=== PATIENT | male | born 1930 | race Caucasian/White ===

== ENCOUNTER → 2016-08-14 | Outpatient (CLI) | payer OTHER ==
[~2016-08-14] MED LIST: CMD25 PO; DXY100 PO; FELO10TA2 PO; FINA5TAB PO; LVNIS80 SQ; NIFE1TAB13 PO; NITR1CAP32 PO; NMN10 PO; PRS5 PO; TERA1CAP63 PO; TERA5CAP PO; ZCR80 PO
[2016-08-14 17:32] LABS: URINE APPEARANCE TURBID (CLEAR); URINE BILIRUBIN NEG (NEG); URINE COLOR DK YELLOW; URINE EPITHELIAL CELL AUTO 0-5 /lpf (0-5); URINE NITRITE POS (NEG); URINE SPECIFIC GRAVITY 1.018 (1.000-1.030); UROBILINOGEN NEG (NEG); ZZUR CULT IF INDIC CLEAN CATCH YES
[2016-08-14 17:47] LABS: MANUAL MICROSCOPIC REQUIRED? NO; REVIEW REQ? YES
== END | disposition home or self-care (01) ==
LOC: C.LABPVFM 07:36
PROVIDERS: ATTEND Nurse Practitioner
DX: N39.0 Urinary tract infection, site not specified (principal)

== ENCOUNTER → 2016-09-04 | Outpatient (CLI) | payer OTHER ==
[2016-09-04 17:36] LABS: URINE APPEARANCE CLOUDY (CLEAR); URINE BILIRUBIN NEG (NEG); URINE COLOR YELLOW; URINE NITRITE NEG (NEG); URINE PH 5.5 (4.5-7.5); URINE SPECIFIC GRAVITY 1.019 (1.000-1.030); UROBILINOGEN NEG (NEG); ZZUR CULT IF INDIC CLEAN CATCH YES
[2016-09-04 17:42] LABS: MANUAL MICROSCOPIC REQUIRED? NO; REVIEW REQ? YES
== END | disposition home or self-care (01) ==
LOC: C.LABPVFM 11:48
PROVIDERS: ATTEND Nurse Practitioner
DX: R31.29 Other microscopic hematuria (principal)

== ENCOUNTER → 2016-11-25 | Outpatient (CLI) | payer OTHER ==
[2016-11-25 18:14] LABS: BLOOD UREA NITROGEN 20 mg/dl (7-18); BUN/CREATININE RATIO 18.4 (10-20); CALCIUM 9.6 mg/dl (8.5-10.1); CARBON DIOXIDE 26 mmol/L (21-32); CHLORIDE 107 mmol/L (98-107); GLUCOSE 110 mg/dl (70-99); SODIUM 141 mmol/L (136-145)
== END | disposition home or self-care (01) ==
LOC: C.LABPVFM 16:12
PROVIDERS: ATTEND Family Medicine
DX: I10 Essential (primary) hypertension (principal)

== ENCOUNTER 2017-04-02 12:51 | Inpatient (IN) | payer OTHER ==
[~2017-04-02] VITALS: Ht 170.2 cm; Wt 85.5 kg
[~2017-04-02 12:51] MED LIST changes: -CMD25 PO; -FINA5TAB PO; -LVNIS80 SQ; -NIFE1TAB13 PO; -NITR1CAP32 PO; -TERA1CAP63 PO
[2017-04-02] MEDS ORDERED: SODIUM CHLORIDE 0.9% 1000ML 1,000 ML IV SCH (13:10)
[2017-04-02] MEDS ORDERED: NMN10 PO (13:16)
[2017-04-02] MEDS ORDERED: TERA1CAP63 PO (13:16)
[2017-04-02] MEDS ORDERED: NITR1CAP32 PO (13:16)
[2017-04-02] MEDS ORDERED: FINA5TAB PO (13:16)
--- NOTE | 2017-04-02 13:24 | DIAGNOSTIC IMAGING REPORT ---
HEAD WITHOUT CONTRAST (CT) CLINICAL HISTORY: 86 years-old Male presenting with Stroke. TECHNIQUE: Multidetector CT imaging of the head was performed without the use of intravenous contrast. IV contrast: None. A dose lowering technique was used consistent with the principles of ALARA (as low as reasonably achievable). COMPARISON: 06/20/2016. CT DOSE (mGy.cm): The estimated cumulative dose is 614.27 mGy.cm. FINDINGS: Grocery Clerk Marking topogram: Unremarkable. Proportional ventricular and sulcal prominence, likely age-related parenchymal volume loss. Periventricular and subcortical white matter hypoattenuation, nonspecific but likely indicative of chronic small vessel ischemic change. No mass effect or midline shift. No hemorrhage or acute territorial infarct. No extra-axial fluid collection. Paranasal sinuses and mastoid air cells clear. Calvarium intact. IMPRESSION: 1. No acute intracranial pathology. Electronically signed by: Donte Mendez M.D. 04/02/2017 1:22 PM Dictated Date/Time: 04/02/2017 1:19 PM
[2017-04-02 13:50] LABS: INR 1.2 (0.9-1.1); PROTHROMBIN TIME (PATIENT) 12.6 SECONDS (9.0-12.0)
[2017-04-02 13:56] LABS: BUN/CREATININE RATIO 19.4 (10-20); CALCIUM 10.1 mg/dl (8.5-10.1); CREATININE 1.7 mg/dl (0.60-1.40); POTASSIUM 4.4 mmol/L (3.5-5.1)
--- NOTE | 2017-04-02 13:58 | DIAGNOSTIC IMAGING REPORT ---
CHEST ONE VIEW PORTABLE CLINICAL HISTORY: Stroke alert. COMPARISON STUDY: Chest radiograph July 25, 2016. FINDINGS: This study is mildly compromised by motion artifact. There is mild left lower lung opacity. Cardiomegaly is noted without evidence of pulmonary edema. No pneumothorax or pleural effusion is noted. There is mild elevation of the right hemidiaphragm. IMPRESSION: 1. Mild left lower lung opacity. This could reflect atelectasis or epicardial fat pad. However, pneumonia could appear similar. Radiographic follow up to ensure resolution is recommended. 2. Stable cardiomegaly without evidence of pulmonary edema. 3. Study mildly compromised by motion artifact. Electronically signed by: Brian Castañeda M.D. 04/02/2017 1:56 PM Dictated Date/Time: 04/02/2017 1:55 PM
[2017-04-02 14:10] LABS: HEMATOCRIT 48.8 % (42-52); MEAN CELL VOLUME 90.7 fL (80-100); MEAN CORPUSCULAR HEMOGLOBIN 29.6 pg (25-34); MEAN CORPUSCULAR HGB CONC 32.6 g/dl (32-36); MEAN PLATELET VOLUME 11.9 fL (7.4-10.4); PLATELET COUNT 70 K/uL (130-400); RED BLOOD COUNT 5.38 M/uL (4.7-6.1); WHITE BLOOD COUNT 10.95 K/uL (4.8-10.8)
[2017-04-02 14:13] LABS: BASO % 0.1 %; BASO ABS # 0.01 K/uL (0-0.2); COMPLETE YES; EOS % 0.5 %; IG% 0.9 %; LYMPH % 9.6 %; LYMPH ABS # 1.05 K/uL (1.2-3.4); MONO % 6.4 %; NEUT % 82.5 %; PLT ESTIMATE DECREASED
--- NOTE | 2017-04-02 14:21 | DIAGNOSTIC IMAGING REPORT ---
RIGHT LOWER EXTREMITY VENOUS DOPPLER HISTORY: Right leg swelling. right leg eval for dvt Right COMPARISON STUDY: None. FINDINGS: There is occlusive thrombus within the right superficial femoral vein, popliteal vein, posterior tibial veins, and peroneal veins. The common femoral vein and anterior tibial veins appear patent. IMPRESSION: Extensive occlusive DVT within the right lower extremity as described above. Electronically signed by: Luis Heck M.D. 04/02/2017 2:19 PM Dictated Date/Time: 04/02/2017 2:18 PM
[2017-04-02] MEDS ORDERED: HEPARIN SOD (PORCINE) 1000 UNIT/ML 10 ML VIAL IV ONE (14:35)
[2017-04-02] MEDS: HEPARIN 25,000 UNIT/500ML D5W 500 ML IV PRN ×2 (14:51→21:06)
[2017-04-02] MEDS ORDERED: ACETAMINOPHEN IV 100 ML IV PRN (15:00)
[2017-04-02] MEDS ORDERED: LEVALBUTEROL/IPRATROPIUM NEB INH SCH (15:00)
[2017-04-02] MEDS ORDERED: ONDANSETRON INJ 2 MG/ML 2 ML VIAL IV PRN (15:00)
[2017-04-02] MEDS ORDERED: HEPARIN 25,000 UNIT/500ML D5W 500 ML IV PRN (15:30)
--- NOTE | 2017-04-02 16:36 | Cardiology Consultation ---
Cardiology Consultation Date of Consultation: Apr 02, 2017. Requesting Physician: Mary Carmen Reason for Consultation: Syncope Pt evaluation today including: conversation w/ patient, conversation w/ family , physical exam, chart review, lab review, review of studies, conversation w/ political consultant, conversation w/ attending History of Present Illness Patient is an 86-year-old gentleman with a history of severe and progressive dementia who was noticed by his caregiver early in the day to have suffered a syncopal episode. The caregiver was not available for an interview today but this information was relayed by family members and the medical staff. It seems he was in his usual state of health when he looks forward and passed out. He quickly regained consciousness was brought to the emergency room. There is some concern regarding an element of expressive aphasia, but discussion with the family reveals this to be his baseline state. Patient self cannot communicate well but will answer some questions. He denies any pain currently. Denies any significant breathing trouble. His family has noticed some increased swelling in his right lower leg over the past several days. 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 He spends most of his day in bed or a chair. He he generally does not ambulate on his own. According to his family members he has been less and less communicative recently. He does have an element of anorexia as well. Past Medical/Surgical History Dementia Benign prostatic hypertrophy Hypertension Diverticulosis Renal carcinoma Pneumonia Past surgical history Kidney surgery Family History Patient reports no known family medical history. Noncontributory given his advanced age Social History Smoking Status: Unknown if Ever Smoked History of Alcohol Use: No Currently lives with family. Review of Systems Resistance could not be obtained due to the patient's dementia Allergies Coded Allergies: No Known Allergies (Verified , 04/02/17) Medications Current Inpatient Medications Medications (Trade) Dose Ordered Sig/[place] Route Start Time Stop Time Status Last Admin Dose Admin Sodium Chloride 1,000 ml @ 50 mls/hr Q20H IV 04/02/17 13:10 05/02/17 13:09 Heparin Sodium/ Dextrose 500 ml @ 26 mls/hr [id number] PRN IV 04/02/17 14:45 05/02/17 14:44 04/02/17 14:51 26 MLS/HR Sodium Chloride 1,000 ml @ 125 mls/hr Q8H IV 04/02/17 14:56 05/02/17 14:55 Ondansetron HCl (Zofran Inj) 4 mg Q6H PRN IV 04/02/17 15:00 05/02/17 14:59 Famotidine 20 mg/ Dextrose 102 ml @ 200 mls/hr Q12H IV 04/02/17 15:00 05/02/17 14:59 UNV Acetaminophen 100 ml @ 400 mls/hr Q8H PRN IV 04/02/17 15:00 05/02/17 14:59 UNV Methylprednisolone Sodium Succinate 20 mg/Syringe 0.32 ml @ 1.5 mls/min Q8H IV 04/02/17 15:00 05/02/17 14:59 UNV Ceftriaxone Sodium 1 gm/ Dextrose 50 ml @ 100 mls/hr Q24H IV 04/02/17 15:00 04/09/17 14:59 UNV Levofloxacin 500 mg/Prmx 100 ml @ 100 mls/hr Q24H IV 04/02/17 15:00 04/09/17 14:59 UNV Heparin Sodium/ Dextrose 500 ml @ 26 mls/hr [id number] PRN IV 04/02/17 15:30 05/02/17 15:29 UNV Ipratropium Gilbert (Atrovent 0.02% 0.5MG/2.5ML Neb) 0.5 mg Q6R INH 04/02/17 21:00 05/02/17 20:59 Levalbuterol (Xopenex 1.25MG/ 0.5ML Neb) 1.25 mg Q6R INH 04/02/17 21:00 05/02/17 20:59 Physical Exam Vital Signs Past 12 Hours Date Time Temp Pulse Resp B/P (MAP) Pulse Ox O2 Delivery O2 Flow Rate FiO2 04/02/17 16:17 96 18 131/91 95 04/02/17 15:36 98 18 130/86 96 Room Air 04/02/17 14:11 104 94 04/02/17 14:10 154/73 04/02/17 13:41 105 92 04/02/17 13:36 95 Room Air 04/02/17 13:36 106 95 04/02/17 13:32 128/87 04/02/17 13:22 104/66 04/02/17 13:06 107 30 93 04/02/17 13:02 36.8 106 25 99/65 95 Room Air 04/02/17 13:02 99/65 04/02/17 13:00 106 04/02/17 12:55 36.8 107 18 99/65 95 Room Air 04/02/17 12:53 98/59 The patient is alert and will answer some questions. Unable to determine if he is oriented to person place or situation. HEENT: Pupils are equal and reactive to light and accommodation. Extraocular movements are intact. The sclerae are anicteric. Neuro: He could not cooperate with the exam Neck: Patient's neck is supple. He has palpable carotid pulses bilaterally without bruits on auscultation. There is no evidence of jugular venous distention. The thyroid is not enlarged. Lungs: Clear to auscultation bilaterally. He has good air movement without use of accessory muscles. No rales wheezes or rhonchi. Cardiac: Heart demonstrates a regular rate and rhythm. Normal S1 and S2. Systolic ejection murmur. Pulses: The patient has palpable radial pulses bilaterally that are equal in intensity Extremities: There was no evidence of hypoperfusion. There is no cyanosis or clubbing. The right leg is swollen relative to the left. Skin: I did not appreciate any rashes on examination today. Data Laboratory Results: Last 24 Hours Test 04/02/17 13:25 White Blood Count 10.95 K/uL Red Blood Count 5.38 M/uL Hemoglobin 15.9 g/dL Hematocrit 48.8 % Mean Corpuscular Volume 90.7 fL Mean Corpuscular Hemoglobin 29.6 pg Mean Corpuscular Hemoglobin Concent 32.6 g/dl Platelet Count 70 K/uL Mean Platelet Volume 11.9 fL Neutrophils (%) (Auto) 82.5 % Lymphocytes (%) (Auto) 9.6 % Monocytes (%) (Auto) 6.4 % Eosinophils (%) (Auto) 0.5 % Basophils (%) (Auto) 0.1 % Neutrophils # (Auto) 9.03 K/uL Lymphocytes # (Auto) 1.05 K/uL Monocytes # (Auto) 0.70 K/uL Eosinophils # (Auto) 0.06 K/uL Basophils # (Auto) 0.01 K/uL RDW Standard Deviation 44.6 fL RDW Coefficient of Variation 13.6 % Immature Granulocyte % (Auto) 0.9 % Immature Granulocyte # (Auto) 0.10 K/uL Platelet Estimate DECREASED Prothrombin Time 12.6 SECONDS Prothromb Time International Ratio 1.2 Activated Partial Thromboplast Time 25.2 SECONDS Partial Thromboplastin Ratio 1.0 Sodium Level 143 mmol/L Potassium Level 4.4 mmol/L Chloride Level 109 mmol/L Carbon Dioxide Level 26 mmol/L Anion Gap 8.0 mmol/L Blood Urea Nitrogen 33 mg/dl Creatinine 1.70 mg/dl Est Creatinine Clear Calc Drug Dose 33.1 ml/min Estimated GFR () 41.7 Estimated GFR (Non- 36.0 BUN/Creatinine Ratio 19.4 Bedside Glucose 160 mg/dl Random Glucose 192 mg/dl Calcium Level 10.1 mg/dl Troponin I 0.071 ng/ml Imaging: Lower extremity Doppler revealed thrombus in the right leg. Chest x- ray demonstrates an opacity in the left lower lung lobe. Noncontrast CT of the head did not demonstrate any acute intracranial abnormality or bleeding. EKG: Sinus tachycardia Echocardiogram demonstrated preserved LV systolic function with what appears to be normal RV function. There is extensive thrombus in the right atrium measuring 3 centimeters in its greatest dimension. There does appear to be an element of aortic stenosis which is not severe. Assessment & Plan 1. Interatrial thrombus: Patient is extensive right leg DVT and evidence of thrombus in the right atrium. Very likely he has also suffered a pulmonary embolus based on his chest x-ray result. He has been appropriately anticoagulated. We debated whether more aggressive intervention is required given the known thrombus in the right atrium. However, it seems the only viable option would be surgical removal of such a large clot. Given his other comorbidities, the risk would be prohibitive. I did discuss this option with the patient's family who were in agreement that we will not pursue surgery. I also discussed his case with the interventional radiology department at [facility] and it was agreed that unless the patient has severe hemodynamic compromise heroic measures such as catheter based thrombectomy would not be pursued. At This point initiation on anticoagulation will be the therapy and we will monitor his hemodynamics and oxygenation. 2. Elevated cardiac troponin: This is likely related to right heart strain. Patient is anticoagulated. I would not pursue any additional evaluation for ischemic heart disease at this point. 3. Valvular heart disease: The 2 dimensional echocardiogram images suggested element of aortic stenosis which is not severe.
--- NOTE | 2017-04-02 17:16 | ECHOCARDIOGRAM REPORT ---
*NOTICE TO RECEIVING CONSTITUTION PARTY AGENCY This information is strictly Confidential and protected under [place] law. [place] law prohibits you from making any further disclosure of this information unless further disclosure is expressly permitted by the written consent of the person to whom it pertains or is authorized by law. A general authorization for the release of medical or other information is not sufficient for this purpose. Hospital accepts no responsibility if the information is made available to any other person, INCLUDING THE PATIENT. Interpretation Summary * Name: GLADYS DEL ROSARIO Study Date: 04/02/2017 03:23 PM * Patient Location: C.ED HR: 111 * : 1930 (M/d/yyyy) Gender: Male Height: 67 in * Age: 86 yrs Ethnicity: CA Weight: 187 lb * Ordering Physician: Randy Garcia * Referring Physician: UNKNOWN * Performed By: Isatu Zhao RCS * * Reason For Study: Cerebral Ischemia/ embolus, DVT Eval for Rt Strain * BSA: 2.0 m2 * -- Conclusions -- * There is borderline concentric left ventricular hypertrophy. * Left ventricular systolic function is normal. * The right ventricle is mildly dilated. * There is extensive thrombus noted within the right atrium. This measures approximately 2 by 3 centimeters in dimension * Injection of contrast documented no interatrial shunt. * Mild valvular aortic stenosis. Procedure Details * A saline contrast injection was performed to assess for cardiac shunting. * The injection was performed through an intravenous line in the left arm. * The attending nurse who injected the saline contrast was FRANKY, RN. * A total of 9 cc of agitated saline was given. Left Ventricle * The left ventricle is grossly normal size. * There is borderline concentric left ventricular hypertrophy. * Ejection Fraction = 60-65%. * Left ventricular systolic function is normal. * The left ventricular wall motion is normal at rest. Right Ventricle * The right ventricle is mildly dilated. * The right ventricular systolic function is normal. Atria * Borderline left atrial enlargement. * Right atrial size is normal. * There is extensive thrombus noted within the right atrium. This measures approximately 2 by 3 centimeters in dimension * Injection of contrast documented no interatrial shunt. Mitral Valve * The mitral valve is grossly normal. * Significant mitral regurgitation is absent. Tricuspid Valve * The tricuspid valve anatomy is normal. * Significant tricuspid regurgitation is absent. Aortic Valve * The aortic valve is trileaflet. * Mild valvular aortic stenosis. * There is no significant aortic regurgitation. Great Vessels * The aortic root is normal size. Pericardium/Pleural * There is no pericardial effusion. Great Vessels * Normal inferior vena cava diameter and respiratory variation suggests normal central venous pressure. MMode 2D Measurements and Calculations RVDd 4.3 cm IVSd 1.1 cm LVIDd 3.7 cm LVIDs 1.8 cm LVPWd 1.2 cm IVS/LVPW 0.94 FS 51.5 % EDV(Teich) 57.2 ml ESV(Teich) 9.5 ml EF(Teich) 83.4 % EDV(cubed) 49.6 ml ESV(cubed) 5.7 ml EF(cubed) 88.6 % LV mass(C)d 138.8 grams LV mass(C)dI 70.6 grams/m\S\2 SV(Teich) 47.7 ml SI(Teich) 24.3 ml/m\S\2 SV(cubed) 43.9 ml SI(cubed) 22.4 ml/m\S\2 Ao root diam 3.8 cm Ao root area 11.1 cm\S\2 LVOT diam 2.2 cm LVOT area 3.9 cm\S\2 LVAd ap4 23.6 cm\S\2 LVLd ap4 8.4 cm EDV(MOD-sp4) 54.4 ml EDV(sp4-el) 56.0 ml LVAs ap4 12.3 cm\S\2 LVLs ap4 6.4 cm ESV(MOD-sp4) 20.6 ml ESV(sp4-el) 20.3 ml EF(MOD-sp4) 62.2 % EF(sp4-el) 63.7 % LVAd ap2 19.5 cm\S\2 LVLd ap2 7.4 cm EDV(MOD-sp2) 43.4 ml EDV(sp2-el) 43.2 ml LVAs ap2 11.2 cm\S\2 LVLs ap2 6.4 cm ESV(MOD-sp2) 19.4 ml ESV(sp2-el) 16.8 ml EF(MOD-sp2) 55.2 % EF(sp2-el) 61.1 % LVLd %diff -13.24 % EDV(MOD-bp) 51.7 ml LVLs %diff -0.24 % ESV(MOD-bp) 19.5 ml EF(MOD-bp) 62.2 % SV(MOD-sp4) 33.9 ml SI(MOD-sp4) 17.2 ml/m\S\2 SV(MOD-sp2) 24.0 ml SI(MOD-sp2) 12.2 ml/m\S\2 SV(MOD-bp) 32.1 ml SI(MOD-bp) 16.3 ml/m\S\2 SV(sp4-el) 35.7 ml SI(sp4-el) 18.2 ml/m\S\2 SV(sp2-el) 26.4 ml SI(sp2-el) 13.4 ml/m\S\2 Doppler Measurements and Calculations Ao V2 max 188.3 cm/sec Ao max PG 14.2 mmHg Ao max PG (full) 11.5 mmHg Ao V2 mean 150.4 cm/sec Ao mean PG 9.8 mmHg Ao mean PG (full) 8.4 mmHg Ao V2 VTI 32.4 cm GAUDENCIO(I,A) 1.6 cm\S\2 GAUDENCIO(I,D) 1.6 cm\S\2 GAUDENCIO(V,A) 1.7 cm\S\2 GAUDENCIO(V,D) 1.7 cm\S\2 LV V1 max PG 2.7 mmHg LV V1 mean PG 1.3 mmHg LV V1 max 82.7 cm/sec LV V1 mean 51.1 cm/sec LV V1 VTI 13.1 cm SV(Ao) 358.5 ml SI(Ao) 182.4 ml/m\S\2 SV(LVOT) 51.6 ml SI(LVOT) 26.3 ml/m\S\2
[2017-04-02] MEDS: SODIUM CHLORIDE 0.9% 1000ML 1,000 ML IV SCH ×2 (17:48→22:48)
[2017-04-02] MEDS: METHYLPREDNISOLONE IV 20 MG in SYRINGE 0 ML IV SCH (17:48)
[2017-04-02] MEDS: LEVOFLOXACIN / D5W 500 MG in PREMIXED IN D5W 100 ML IV SCH (17:49)
[2017-04-02] MEDS: CEFTRIAXONE SOD INJ 1 GM in DEXTROSE 5% ADD-VANTAGE 50ML 50 ML IV SCH (17:49)
[2017-04-02] MEDS: FAMOTIDINE IV INJ 20 MG in DEXTROSE 5% 100ML 100 ML IV SCH (17:49)
--- NOTE | 2017-04-02 18:45 | History and Physical ---
History & Physical Date & Time of Service: Apr 02, 2017 at 18:23 Chief Complaint: Acute Dvt Of Rt Lower Extremity, Lt Lower Lobe Pne Primary Care Physician: Donte Willard M.D. History of Present Illness Source: patient, family, hospital records The patient is an 86-year-old male with known progressive severe dementia who his caregiver reports had a syncopal episode earlier in the day prior to arrival. His family had noted some increased swelling in the right leg over the past several days, but he had not reported any leg pain or difficulty with breathing or chest pain. Past Medical/Surgical History Medical Problems: (1) Acute prostatitis Status: Resolved (2) Altered mental status Status: Resolved (3) Bilateral pneumonia Status: Resolved (4) BPH (benign prostatic hyperplasia) Status: Chronic (5) Dementia Status: Chronic (6) Fever Status: Resolved (7) HTN (hypertension) Status: Chronic (8) Hypercholesterolemia Status: Chronic Family History Patient reports no known family medical history. Social History Smoking Status: Unknown if Ever Smoked Smokeless Tobacco Use: No Alcohol Use: none Drug Use: none Marital Status: Housing status: lives with family Occupational Status: retired Immunizations History of Influenza Vaccine: N/A History of Tetanus Vaccine?: No History of Pneumococcal: No History of Hepatitis B Vaccine: No Multi-Drug Resistant Organisms History of MDRO: No Allergies Coded Allergies: No Known Allergies (Verified , 04/02/17) Home Medications Scheduled Finasteride (Proscar), 1 TAB PO DAILY Memantine (Namenda), 10 MG PO QAM Memantine (Namenda), 10 MG PO BID Nitrofurantoin Macrocrystals (Macrodantin), 1 CAP PO BID Terazosin Hcl (Hytrin), 1 CAP PO HS Review of Systems The patient himself was not able to contribute significantly to his review of systems or history of present illness. His family who is in attendance, who are very attentive, reports that he was in his usual state of health, with the above-noted change in his right leg size, prior to the syncopal episode this morning Physical Exam Vital Signs Date Time Temp Pulse Resp B/P (MAP) Pulse Ox O2 Delivery O2 Flow Rate FiO2 04/02/17 16:17 96 18 131/91 95 04/02/17 15:36 98 18 130/86 96 Room Air 04/02/17 14:11 104 94 04/02/17 14:10 154/73 04/02/17 13:41 105 92 04/02/17 13:36 95 Room Air 04/02/17 13:36 106 95 04/02/17 13:32 128/87 04/02/17 13:22 104/66 04/02/17 13:06 107 30 93 04/02/17 13:02 36.8 106 25 99/65 95 Room Air 04/02/17 13:02 99/65 04/02/17 13:00 106 04/02/17 12:55 36.8 107 18 99/65 95 Room Air 04/02/17 12:53 98/59 The patient is lethargic, normocephalic and atraumatic, lying in bed and in no acute distress. HEENT--PERRL, EOMI, mucous membranes and oropharynx dry. Neck--supple, no JVD or bruits, thyroid normal, trachea midline, no adenopathy. Heart--normal S1 and S2, no extra beats, no murmurs, rubs or gallops. Lungs--few coarse breath sounds bilaterally with decreased breath sounds left base, no respiratory distress, no accessory muscle use. Abdomen--normal bowel sounds and soft, nontender and nondistended, no hernias or masses, no organomegaly. Extremities--right lower extremity larger in circumference than the left, with mild pitting edema. Dermatologic--normal skin turgor, normal color, warm and dry, no abnormal lymph nodes, no rash. Neurologic--cranial nerves II through XII grossly intact, motor and sensory examination normal. Rheumatologic--normal range of motion, nontender, muscles and joints. Psychiatric--lethargic, occasionally opens eyes. And is able to eventually answer a few questions appropriately with one or 2 words. Diagnostics Laboratory Results Results Past 24 Hours Test 04/02/17 13:25 Range/Units White Blood Count 10.95 4.8-10.8 K/uL Red Blood Count 5.38 4.7-6.1 M/uL Hemoglobin 15.9 14.0-18.0 g/dL Hematocrit 48.8 42-52 % Mean Corpuscular Volume 90.7 80-100 fL Mean Corpuscular Hemoglobin 29.6 25-34 pg Mean Corpuscular Hemoglobin Concent 32.6 32-36 g/dl Platelet Count 70 130-400 K/uL Mean Platelet Volume 11.9 7.4-10.4 fL Neutrophils (%) (Auto) 82.5 % Lymphocytes (%) (Auto) 9.6 % Monocytes (%) (Auto) 6.4 % Eosinophils (%) (Auto) 0.5 % Basophils (%) (Auto) 0.1 % Neutrophils # (Auto) 9.03 1.4-6.5 K/uL Lymphocytes # (Auto) 1.05 1.2-3.4 K/uL Monocytes # (Auto) 0.70 0.11-0.59 K/uL Eosinophils # (Auto) 0.06 0-0.5 K/uL Basophils # (Auto) 0.01 0-0.2 K/uL RDW Standard Deviation 44.6 36.4-46.3 fL RDW Coefficient of Variation 13.6 11.5-14.5 % Immature Granulocyte % (Auto) 0.9 % Immature Granulocyte # (Auto) 0.10 0.00-0.02 K/uL Platelet Estimate DECREASED Prothrombin Time 12.6 9.0-12.0 SECONDS Prothromb Time International Ratio 1.2 0.9-1.1 Activated Partial Thromboplast Time 25.2 21.0-31.0 SECONDS Partial Thromboplastin Ratio 1.0 Sodium Level 143 136-145 mmol/L Potassium Level 4.4 3.5-5.1 mmol/L Chloride Level 109 98-107 mmol/L Carbon Dioxide Level 26 21-32 mmol/L Anion Gap 8.0 3-11 mmol/L Blood Urea Nitrogen 33 7-18 mg/dl Creatinine 1.70 0.60-1.40 mg/dl Est Creatinine Clear Calc Drug Dose 33.1 ml/min Estimated GFR () 41.7 Estimated GFR (Non- 36.0 BUN/Creatinine Ratio 19.4 10-20 Bedside Glucose 160 70-99 mg/dl Random Glucose 192 70-99 mg/dl Calcium Level 10.1 8.5-10.1 mg/dl Total Bilirubin 2.8 0.2-1 mg/dl Direct Bilirubin 0.8 0-0.2 mg/dl Aspartate Amino Transf (AST/SGOT) 41 15-37 U/L Alanine Aminotransferase (ALT/SGPT) 60 12-78 U/L Alkaline Phosphatase 155 45-117 U/L Troponin I 0.071 0-0.045 ng/ml Total Protein 7.7 6.4-8.2 gm/dl Albumin 3.4 3.4-5.0 gm/dl Diagnostic Radiology Patient Name: GLADYS DEL ROSARIO Unit Number: [id number] Dictated: 04/02/171417 Transcribed: 04/02/171417 PAJ Printed Date/Time: [~ rep prt dt]/[~ rep prt tm] [~ rep ct labl] - [~ rep ct ivnm] [facility] [place] [address] Dictated: 04/02/171417 Transcribed: 04/02/171417 PAJ Printed Date/Time: [~ rep prt dt]/[~ rep prt tm] [~ rep ct labl] - [~ rep ct ivnm] [~ rep ct add3]] RIGHT LOWER EXTREMITY VENOUS DOPPLER HISTORY: Right leg swelling. right leg eval for dvt Right COMPARISON STUDY: None. FINDINGS: There is occlusive thrombus within the right superficial femoral vein, popliteal vein, posterior tibial veins, and peroneal veins. The common femoral vein and anterior tibial veins appear patent. IMPRESSION: Extensive occlusive DVT within the right lower extremity as described above. Electronically signed by: Luis Heck M.D. 04/02/2017 2:19 PM Dictated Date/Time: 04/02/2017 2:18 PM The status of this report is Signed. Draft = Not yet reviewed or approved by Radiologist. Signed = Reviewed and approved by Radiologist. <AttendingPhy></AttendingPhy> <FamilyPhy>Donte Willard M.D.</FamilyPhy> < PrimaryPhy>Donte Willard M.D.</PrimaryPhy> <UnitNumber>[id number]</UnitNumber > <VisitNumber>[id number]</VisitNumber> <PatientName>GLADYS DEL ROSARIO</ PatientName> <DateOfBirth>1930</DateOfBirth> <Location>[facility]</Location> < ServiceDate>04/02/17</ServiceDate> <MNE>ESINDI</MNE> <OrderingPhy>Randy Garcia MD</OrderingPhy> <OrderingPhyMNE>f rep ord dr garcia</OrderingPhyMNE> < DictatingPhyMNE>f rep dict dr garcia</DictatingPhyMNE> <CCListMNE>f rep ct mne</ CCListMNE> <AdmittingPhyMNE>f pt admit dr garcia</AdmittingPhyMNE> <AttendingPhyMNE >f pt attend dr garcia</AttendingPhyMNE> <ConsultingPhyMNE>f pt consult dr garcia</ConsultingPhyMNE> <FamilyPhyMNE>f pt fam dr garcia</FamilyPhyMNE> <OtherPhyMNE>f pt other dr garcia</OtherPhyMNE> < PrimaryPhyMNE>f pt prim care dr garcia</PrimaryPhyMNE> <ReferringPhyMNE>f pt referring dr garcia</ReferringPhyMNE> Patient Name: GLADYS DEL ROSARIO Unit Number: [id number] Dictated: 04/02/171318 Transcribed: 04/02/171318 PBS Printed Date/Time: [~ rep prt dt]/[~ rep prt tm] [~ rep ct labl] - [~ rep ct ivnm] [facility] [place] [address] Dictated: 04/02/171318 Transcribed: 04/02/171318 PBS Printed Date/Time: [~ rep prt dt]/[~ rep prt tm] [~ rep ct labl] - [~ rep ct ivnm] [~ rep ct add3]] HEAD WITHOUT CONTRAST (CT) CLINICAL HISTORY: 86 years-old Male presenting with Stroke. TECHNIQUE: Multidetector CT imaging of the head was performed without the use of intravenous contrast. IV contrast: None. A dose lowering technique was used consistent with the principles of ALARA (as low as reasonably achievable). COMPARISON: 06/20/2016. CT DOSE (mGy.cm): The estimated cumulative dose is 614.27 mGy.cm. FINDINGS: Surgical Brace Maker topogram: Unremarkable. Proportional ventricular and sulcal prominence, likely age-related parenchymal volume loss. Periventricular and subcortical white matter hypoattenuation, nonspecific but likely indicative of chronic small vessel ischemic change. No mass effect or midline shift. No hemorrhage or acute territorial infarct. No extra-axial fluid collection. Paranasal sinuses and mastoid air cells clear. Calvarium intact. IMPRESSION: 1. No acute intracranial pathology. Electronically signed by: Donte Mendez M.D. 04/02/2017 1:22 PM Dictated Date/Time: 04/02/2017 1:19 PM The status of this report is Signed. Draft = Not yet reviewed or approved by Radiologist. Signed = Reviewed and approved by Radiologist. <AttendingPhy></AttendingPhy> <FamilyPhy>Donte Willard M.D.</FamilyPhy> < PrimaryPhy>Donte Willard M.D.</PrimaryPhy> <UnitNumber>[id number]</UnitNumber > <VisitNumber>[id number]</VisitNumber> <PatientName>GLADYS DEL ROSARIO</ PatientName> <DateOfBirth>1930</DateOfBirth> <Location>[facility]</Location> < ServiceDate>04/02/17</ServiceDate> <MNE>ESINDI</MNE> <OrderingPhy>Randy Garcia MD</OrderingPhy> <OrderingPhyMNE>f rep ord dr garcia</OrderingPhyMNE> < DictatingPhyMNE>f rep dict dr garcia</DictatingPhyMNE> <CCListMNE>f rep ct ojse</ CCListMNE> <AdmittingPhyMNE>f pt admit dr garcia</AdmittingPhyMNE> <AttendingPhyMNE >f pt attend dr garcia</AttendingPhyMNE> <ConsultingPhyMNE>f pt consult dr garcia</ConsultingPhyMNE> <FamilyPhyMNE>f pt fam dr garcia</FamilyPhyMNE> <OtherPhyMNE>f pt other dr garcia</OtherPhyMNE> < PrimaryPhyMNE>f pt prim care dr garcia</PrimaryPhyMNE> <ReferringPhyMNE>f pt referring dr garcia</ReferringPhyMNE> Patient Name: GLADYS DEL ROSARIO Unit Number: [id number] Dictated: 04/02/17 1355 Transcribed: 04/02/17 1355 JA Printed Date/Time: [~ rep prt dt]/[~ rep prt tm] [~ rep ct labl] - [~ rep ct ivnm] [facility] Radiology Department [place], [place] [id number] Dictated: 04/02/171354 Transcribed: 04/02/17 135 JA Printed Date/Time: [~ rep prt dt]/[~ rep prt tm] [~ rep ct labl] - [~ rep ct ivnm] CHEST ONE VIEW PORTABLE CLINICAL HISTORY: Stroke alert. COMPARISON STUDY: Chest radiograph July 25, 2016. FINDINGS: This study is mildly compromised by motion artifact. There is mild left lower lung opacity. Cardiomegaly is noted without evidence of pulmonary edema. No pneumothorax or pleural effusion is noted. There is mild elevation of the right hemidiaphragm. IMPRESSION: 1. Mild left lower lung opacity. This could reflect atelectasis or epicardial fat pad. However, pneumonia could appear similar. Radiographic follow up to ensure resolution is recommended. 2. Stable cardiomegaly without evidence of pulmonary edema. 3. Study mildly compromised by motion artifact. Electronically signed by: Brian Castañeda M.D. 04/02/2017 1:56 PM Dictated Date/Time: 04/02/2017 1:55 PM The status of this report is Signed. Draft = Not yet reviewed or approved by Radiologist. Signed = Reviewed and approved by Radiologist. <AttendingPhy></AttendingPhy> <FamilyPhy>Donte Willard M.D.</FamilyPhy> < PrimaryPhy>Donte Willard M.D.</PrimaryPhy> <UnitNumber>[id number]</UnitNumber > <VisitNumber>[id number]</VisitNumber> <PatientName>GLADYS DEL ROSARIO</ PatientName> <DateOfBirth>1930</DateOfBirth> <Location>[facility]</Location> < ServiceDate>04/02/17</ServiceDate> <MNE>ESINDI</MNE> <OrderingPhy>Randy Garcia MD</OrderingPhy> <OrderingPhyMNE>f rep roc garcia</OrderingPhyMNE> < DictatingPhyMNE>f rep dict dr garcia</DictatingPhyMNE> <CCListMNE>f rep ct ricoe</ CCListMNE> <AdmittingPhyMNE>f pt admit dr garcia</AdmittingPhyMNE> <AttendingPhyMNE >f pt attend dr garcia</AttendingPhyMNE> <ConsultingPhyMNE>f pt consult dr garcia</ConsultingPhyMNE> <FamilyPhyMNE>f pt fam dr garcia</FamilyPhyMNE> <OtherPhyMNE>f pt other dr garcia</OtherPhyMNE> < PrimaryPhyMNE>f pt prim care dr garcia</PrimaryPhyMNE> <ReferringPhyMNE>f pt referring dr garcia</ReferringPhyMNE> EKG EKG shows ectopic atrial tachycardia at 107 bpm, nonspecific ST changes, no change compared to 06/20/2016 Impression Assessment and Plan Right lower extremity DVT/right apical heart thrombus/left lower lobe pneumonia versus pulmonary infarct--The patient will be admitted to telemetry for serial cardiac enzymes, cardiac rhythm monitoring and a 2-D echocardiogram with Dopplers. Heparin infusion standard weight-based protocol without bolus. Solu-Medrol 20 mg IV every 8 hours Ceftriaxone 1 g IV daily Levofloxacin 500 mg IV every 24 hours Vancomycin IV per pharmacokinetic monitoring Xopenex/Atrovent nebulizers every 6 hours while awake and every 2 hours when necessary. Elevated troponin with right apical thrombus--no further aggressive intervention other than heparin infusion as above. Likely secondary to right heart strain. Echocardiogram performed in the ED was read by Dr. Stark. Consult with Dr. Stark from cardiology. Dementia--hold Namenda until patient is more alert to take medications orally. BPH--hold finasteride and terazosin until patient more awake take medications orally. CODE STATUS: Patient is a level V DO NOT RESUSCITATE. 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 Y/N: Yes Risk Level: High Given or contraindicated: Unfractionated heparin SQ
[2017-04-02 18:50] VITALS: BP 102/66; PULSE 98; TEMP 36.4; O2SAT 93; Ht 170.2 cm; Wt 85.5 kg
[2017-04-02 19:37] VITALS: BP 119/70; PULSE 98; TEMP 36.2; O2SAT 94
[2017-04-02 19:46] LABS: PARTIAL THROMBOPLASTIN RATIO 1.7
--- NOTE | 2017-04-02 19:47 | EMERGENCY ROOM VISIT NOTE ---
History Report prepared by Mark: Maninder Anna Under the Supervision of: Dr. Randy Garcia M.D. First contact with patient: 13:03 Chief Complaint: SYNCOPE Stated Complaint: SEMI RESPONSIVE Nursing Triage Summary: Reported syncopal episiode from caregiver then afterwards the patient became unresponsive. HX: Dementia History of Present Illness The patient is an 86 year old male with dementia who presents to the Emergency Room with a syncopal episode that occurred around 2 hours ago. Per the patient' s grandson, the episode was only witnessed by the patient's caregiver. The caregiver notes that after being given a shower, while sitting in his wheelchair he passed out, and both sides of his face dropped. The doctor podiatric medicine notes that the patient slumped forward in his wheelchair. The patient was then brought here via ambulance. The patient has been noted to be below baseline mental status ever since the episode. The patient's grandchildren say that the patient normally talks and is responsive, and was talking and responsive last night. Currently, the patient is not responsive or talking, and his face is still drawn down. Any fevers were denied on behalf of the patient. Per the patient's granddaughter, the patient has been having worsening dementia the past 3 weeks, which has been manifested in his difficulty to walk or communicate. The patient has been on Macrobid since October for recurrent UTIs by his urologist. The patient was also noted to have started having leg swelling 2 weeks ago. The legs were elevated, and the swelling went down a bit. History limited secondary to patient's lack of responsiveness. Source of History: family, caregiver History Limited By: AMS Onset: Around 2 hours ago Position: other (global - syncope) Timing: other (episode) Associated Symptoms: + LOC, No fevers Note: Associated symptoms: Not talking or responsive. Noted to be below baseline mental status. Face drawn down. Review of Systems ROS limited secondary to patient's altered mental status Past Medical & Surgical Medical Problems: (1) Acute deep vein thrombosis (DVT) of right lower extremity (2) Acute prostatitis (3) Altered mental status (4) Bilateral pneumonia (5) BPH (benign prostatic hyperplasia) (6) Dementia (7) Fever (8) HTN (hypertension) (9) Hypercholesterolemia (10) Left lower lobe pneumonia (11) Right lower lobe pneumonia Family History Patient reports no known family medical history. Social History Smoking Status: Unknown if Ever Smoked Alcohol Use: occasionally Drug Use: none Marital Status: Housing Status: lives with significant other Occupation Status: retired Current/Historical Medications Scheduled Finasteride (Proscar), 1 TAB PO DAILY Memantine (Namenda), 10 MG PO QAM Memantine (Namenda), 10 MG PO BID Nitrofurantoin Macrocrystals (Macrodantin), 1 CAP PO BID Terazosin Hcl (Hytrin), 1 CAP PO HS Allergies Coded Allergies: No Known Allergies (Verified , 04/02/17) Physical Exam Vital Signs Date Time Temp Pulse Resp B/P (MAP) Pulse Ox O2 Delivery O2 Flow Rate FiO2 04/02/17 14:11 104 94 04/02/17 14:10 154/73 04/02/17 13:41 105 92 04/02/17 13:36 95 Room Air 04/02/17 13:36 106 95 04/02/17 13:32 128/87 04/02/17 13:22 104/66 04/02/17 13:06 107 30 93 04/02/17 13:02 36.8 106 25 99/65 95 Room Air 04/02/17 13:02 99/65 04/02/17 13:00 106 04/02/17 12:55 36.8 107 18 99/65 95 Room Air 04/02/17 12:53 98/59 Physical Exam Constitutional: Vital signs reviewed. Eyes: Pupils are equal round reactive to light. Conjunctiva are noninjected. ENT: Pharynx is clear without erythema or exudate. Mucous membranes are moist. Neck supple without meningeal signs. Respiratory: Clear to auscultation bilaterally. Breath sounds are equal bilaterally. Cardiovascular: Regular rate and rhythm. No rubs or gallops. GI: Soft, nondistended and nontender. Bowel sounds are present. Musculoskeletal: Right leg edema without tenderness. Integumentary: No cyanosis. Neurological: The patient is awake. He mumbles when asked questions. No intelligible words. He does not follow commands. Psychiatric: Unable to assess. Medical Decision & Procedures ER Provider Diagnostic Interpretation: Radiology results as stated below per my review and the radiologist's interpretation: RIGHT LOWER EXTREMITY VENOUS DOPPLER HISTORY: Right leg swelling. right leg eval for dvt Right COMPARISON STUDY: None. FINDINGS: There is occlusive thrombus within the right superficial femoral vein, popliteal vein, posterior tibial veins, and peroneal veins. The common femoral vein and anterior tibial veins appear patent. IMPRESSION: Extensive occlusive DVT within the right lower extremity as described above. Electronically signed by: Luis Heck M.D. 04/02/2017 2:19 PM Dictated Date/Time: 04/02/2017 2:18 PM HEAD WITHOUT CONTRAST (CT) CLINICAL HISTORY: 86 years-old Male presenting with Stroke. TECHNIQUE: Multidetector CT imaging of the head was performed without the use of intravenous contrast. IV contrast: None. A dose lowering technique was used consistent with the principles of ALARA (as low as reasonably achievable). COMPARISON: 06/20/2016. CT DOSE (mGy.cm): The estimated cumulative dose is 614.27 mGy.cm. FINDINGS: Ems Helicopter Pilot topogram: Unremarkable. Proportional ventricular and sulcal prominence, likely age-related parenchymal volume loss. Periventricular and subcortical white matter hypoattenuation, nonspecific but likely indicative of chronic small vessel ischemic change. No mass effect or midline shift. No hemorrhage or acute territorial infarct. No extra-axial fluid collection. Paranasal sinuses and mastoid air cells clear. Calvarium intact. IMPRESSION: 1. No acute intracranial pathology. Electronically signed by: Donte Mendez M.D. 04/02/2017 1:22 PM Dictated Date/Time: 04/02/2017 1:19 PM CHEST ONE VIEW PORTABLE CLINICAL HISTORY: Stroke alert. COMPARISON STUDY: Chest radiograph July 25, 2016. FINDINGS: This study is mildly compromised by motion artifact. There is mild left lower lung opacity. Cardiomegaly is noted without evidence of pulmonary edema. No pneumothorax or pleural effusion is noted. There is mild elevation of the right hemidiaphragm. IMPRESSION: 1. Mild left lower lung opacity. This could reflect atelectasis or epicardial fat pad. However, pneumonia could appear similar. Radiographic follow up to ensure resolution is recommended. 2. Stable cardiomegaly without evidence of pulmonary edema. 3. Study mildly compromised by motion artifact. Electronically signed by: Brian Castañeda M.D. 04/02/2017 1:56 PM Dictated Date/Time: 04/02/2017 1:55 PM Laboratory Results 04/02/17 13:25 Red Blood Count 5.38, Mean Corpuscular Volume 90.7, Mean Corpuscular Hemoglobin 29.6, Mean Corpuscular Hemoglobin Concent 32.6, Mean Platelet Volume 11.9, Neutrophils (%) (Auto) 82.5, Lymphocytes (%) (Auto) 9.6, Monocytes (%) (Auto) 6.4, Eosinophils (%) (Auto) 0.5, Basophils (%) (Auto) 0.1, Neutrophils # (Auto) 9.03, Lymphocytes # (Auto) 1.05, Monocytes # (Auto) 0.70, Eosinophils # (Auto) 0.06, Basophils # (Auto) 0.01 04/02/17 13:25 Test 04/02/17 13:25 White Blood Count 10.95 K/uL (4.8-10.8) Red Blood Count 5.38 M/uL (4.7-6.1) Hemoglobin 15.9 g/dL (14.0-18.0) Hematocrit 48.8 % (42-52) Mean Corpuscular Volume 90.7 fL (80-100) Mean Corpuscular Hemoglobin 29.6 pg (25-34) Mean Corpuscular Hemoglobin Concent 32.6 g/dl (32-36) Platelet Count 70 K/uL (130-400) Mean Platelet Volume 11.9 fL (7.4-10.4) Neutrophils (%) (Auto) 82.5 % Lymphocytes (%) (Auto) 9.6 % Monocytes (%) (Auto) 6.4 % Eosinophils (%) (Auto) 0.5 % Basophils (%) (Auto) 0.1 % Neutrophils # (Auto) 9.03 K/uL (1.4-6.5) Lymphocytes # (Auto) 1.05 K/uL (1.2-3.4) Monocytes # (Auto) 0.70 K/uL (0.11-0.59) Eosinophils # (Auto) 0.06 K/uL (0-0.5) Basophils # (Auto) 0.01 K/uL (0-0.2) RDW Standard Deviation 44.6 fL (36.4-46.3) RDW Coefficient of Variation 13.6 % (11.5-14.5) Immature Granulocyte % (Auto) 0.9 % Immature Granulocyte # (Auto) 0.10 K/uL (0.00-0.02) Platelet Estimate DECREASED Prothrombin Time 12.6 SECONDS (9.0-12.0) Prothromb Time International Ratio 1.2 (0.9-1.1) Anion Gap 8.0 mmol/L (3-11) Est Creatinine Clear Calc Drug Dose 33.1 ml/min Estimated GFR () 41.7 Estimated GFR (Non- 36.0 BUN/Creatinine Ratio 19.4 (10-20) Bedside Glucose 160 mg/dl (70-99) Calcium Level 10.1 mg/dl (8.5-10.1) Total Bilirubin 2.8 mg/dl (0.2-1) Direct Bilirubin 0.8 mg/dl (0-0.2) Aspartate Amino Transf (AST/SGOT) 41 U/L (15-37) Alanine Aminotransferase (ALT/SGPT) 60 U/L (12-78) Alkaline Phosphatase 155 U/L (45-117) Troponin I 0.071 ng/ml (0-0.045) Total Protein 7.7 gm/dl (6.4-8.2) Albumin 3.4 gm/dl (3.4-5.0) Laboratory results as reviewed by me. Medications Administered Medications (Trade) Dose Ordered Sig/Esperanza Route Start Time Stop Time Status Last Admin Dose Admin Heparin Sodium/ Dextrose 500 ml @ 26 mls/hr [id number] PRN IV 04/02/17 14:45 05/02/17 14:44 04/02/17 14:51 26 MLS/HR Sodium Chloride 1,000 ml @ 125 mls/hr Q8H IV 04/02/17 14:56 05/02/17 14:55 04/02/17 17:48 125 MLS/HR ECG Indication: syncope Rate (beats per minute): 107 Rhythm: sinus tachycardia Findings: no ectopy, other (no ST elevations) ED Course 1304: The patient was evaluated in room A11B. A limited history and physical exam was performed. History given by patient's grandchildren. 1310: Ordered NSS 1000 ml @ 50 mls/hr IV. 1313: I intended to call Alexa Ortez (the patient's caregiver), and left a message. 1333: I discussed the patient with Dr. Marcos Hutchinson neurology - she says that no TPA is indicated given the patient's symptoms. She thinks that perhaps there could have been some hypoperfusions. I agree that TPA is not indicated. 1335: I discussed the treatment plan with the patient's grandchildren, who are the patient's health care proxies, and they are also in agreement. 1336: I reevaluated the patient, and he is more verbal now. He can now state that his name is Jared and that he is in a hospital. He still has trouble following commands. 1421: I reevaluated the patient and he has no change in his mental status currently. His blood pressure has improved. I discussed test results with the family. They state that the patient has had no fevers or productive cough. The patient was noted to have a chronic cough that is like a tic for him. 1427: I reevaluated the patient and discussed the ultrasound and blood work results with the patient's family. The patient is not hypoxic. He is tachycardic at 104. I expressed concern about a PE to the family but also my concerns about doing a CT angiogram given the patient's kidney injury. We will heparinize him. The patient's family verbally expressed understanding and agreement of the treatment plan. The patient will be evaluated for further treatment. 1431: I [facility] the [facility] - he says that we can do an echo with bubble study. 1434: The patient's granddaughter heard from the caregiver, who said that the patient woke up earlier today with slurred speech, although he has been having slurred speech in the mornings the past few weeks, which usually clears up, but did not today. I discussed the plan with the family about the stat echo. 1435: Ordered Heparin IV Bolus 6000 unit IV. 1445: Ordered Heparin Sodium/Dextrose 500 ml @ 26 mls/hr IV PRN. 1446: Dr. Campuzano ([facility] hospitalist) was informed by the special education secretary about the patient. He will evaluate the patient for further treatment. 1456: I discussed the patient with Dr. Campuzano - [facility] hospitalist - he will evaluate the patient for further treatment. 1600: I discussed the patient [facility] - he says that there is a sizeable thrombus in the right atrium but no signs of heart strain. There may be a slight PFO. He talked to the family and he is not a surgical candidate. He will call [facility] to see if a catheter retrieval or clot would be viable. 1605: I let Dr. Campuzano know about the street light inspector's results. 1628: I discussed the patient with Dr. Stark - he talked to [facility] and they do not feel that the patient needs to be transferred for any catheter retrieval or breaking up of the clot. Medical Decision This is an 86-year-old male who presents with syncope, altered mental status with right leg swelling. Differential diagnosis includes CVA, intracranial hemorrhage, intracranial mass, DVT, pulmonary embolism, dysrhythmia. I did perform a limited focused review of portions of the patient's old chart on the electronic medical record. The patient has had no recent pertinent visits to this hospital. I did evaluate the patient as noted above. I did obtain history from the patient's grandchildren who identified themselves as the healthcare proxies. I was unable to contact the caregiver who witnessed the event because of her cell phone service. She did text additional information to the granddaughter who related this to me later. IV access was established. The patient was placed on a continuous anvil worker. Because of his syncopal episodes and aphasia I did initiate a stroke alert. I did not, however, feel the patient was a candidate for IV TPA as the history is somewhat unclear. I did discuss IV TPA with the grandchildren. Later they were able to obtain further information from the doctor podiatric medicine via text message. The doctor podiatric medicine stated that he had some difficulty with speech earlier on in the morning and so this would put him outside the window for IV TPA. I did order a CT of the head. I did review the images myself as well as the radiology report as described above. There is no evidence of acute stroke or bleed. I did order and personally review the patient's 12-lead EKG and chest x-ray as described above. He does have a questionable infiltrate in the left lower lobe. These grandchildren denies any history of fever or significant cough. He has a chronic cough which they describe as a tic. I did order and review the patient's blood work as noted in the electronic medical record. He does have an elevated creatinine as well as an elevated troponin. The patient also presented with right leg swelling and so I did order Doppler of the right leg. He does have what appears to be an occlusive thrombus which is fairly extensive. I did discuss this with the grandchildren and started him on IV heparin drip. I was concerned about potential pulmonary embolism but the patient has an elevated creatinine. I did discuss risks and benefits of CT scanning and we will hold off at this time as I did start him on IV heparin. I did order a stat echocardiogram to evaluate for right ventricular strain and PFO. According to the street light inspector he did have a large thrombus in the right atrium but no signs of ventricular strain. The street light inspector did call [facility] to see if there was any possible intervention for the atrial thrombus and stated that they did not feel that any acute intervention was indicated currently. I did discuss the case with the hospitalist. The patient was admitted to the hospital for further care. Medication Reconcilliation Current Medication List: was personally reviewed by me Blood Pressure Screening Patient's blood pressure: Low blood pressure Consults Time Called: 1325 Consulting Physician: Dr. Marcos Hutchinson neurology Returned Call: [phone] I discussed the patient with Dr. Marcos Hutchinson neurology - she says that no TPA is indicated given the patient's symptoms. She thinks that perhaps there could have been some hypoperfusions. I agree that TPA is not indicated. Additional Consults: Time Called: 1428 Consulted Physician: Dr. Mi MATA cardiovascular disease Returned Call: 1438 Additional Comments: I discussed the patient with Dr. Mi MATA cardiovascular disease - he says that we can do an echo with bubble study. Time Called: 1440 Consulted Physician: Dr. Tatianna MATA hospitalist Returned Call: [phone] Additional Comments: I discussed the patient with Dr. Tatianna MATA hospitalist - he will evaluate the patient for further treatment. Impression Primary Impression: Pulmonary emboli Additional Impressions: Right atrial thrombus Syncope Altered mental status Right leg DVT Elevated troponin MCKAYLA (acute kidney injury) Pulmonary infiltrate in left lung on chest x-ray Critical Care I have personally spent 80 minutes of critical care time in the direct management of this patient. This includes bedside care, interpretation of diagnostic studies, and testing, discussion with consultants, patient, and family members, and other required patient management activities. This 80 minutes is in excess of all separately billable procedures. Scribe Attestation The scribe's documentation has been prepared under my direct and personally reviewed by me in its entirety. I confirm that the note above accurately reflects all work, treatment, procedures, and medical decision making performed by me. Departure Information Dispostion Being Evaluated By Hospitalist Donte Kapoor M.D. (PCP) Patient Instructions My [facility] Stroke History Time Last Known Well Last night Stroke t-PA Criteria Reviewed Does NOT meet criteria for t-PA Reason t-PA Not Given Treatment not indicated (due to unclear history and timing) Problem Qualifiers Primary Impression: Pulmonary emboli Pulmonary embolism type: other Chronicity: acute Acute cor pulmonale presence: without acute cor pulmonale Qualified Codes: I26.99 - Other pulmonary embolism without acute cor pulmonale Additional Impressions: Syncope Syncope type: unspecified Qualified Codes: R55 - Syncope and collapse Altered mental status Altered mental status type: unspecified Qualified Codes: R41.82 - Altered mental status, unspecified Right leg DVT Affected thrombotic vein of extremity: unspecified vein of extremity Chronicity: acute Qualified Codes: I82.401 - Acute embolism and thrombosis of unspecified deep veins of right lower extremity
[2017-04-02] MEDS ORDERED: HEPARIN IV BOLUS 3,000 UNIT in SYRINGE 0 ML IV ONE (21:00)
[2017-04-02] MEDS: IPRATROPIUM BROMIDE NEB SOLN 0.02% 2.5 ML VIAL INH SCH ×2 (22:45→22:50)
[2017-04-02] MEDS: LEVALBUTEROL 1.25MG/0.5ML NEB INH SCH ×2 (22:45→22:50)
[2017-04-02 22:50] VITALS: PULSE 87; O2SAT 93
[2017-04-02 23:33] VITALS: BP 105/66; PULSE 91; TEMP 36.6; O2SAT 95
[2017-04-03] VITALS (10 sets, daily range): BP systolic 119–143; BP diastolic 69–96; PULSE 66–84; TEMP 36.4–36.8; O2SAT 93–98
[2017-04-03] MEDS: METHYLPREDNISOLONE IV 20 MG in SYRINGE 0 ML IV SCH ×3 (02:05→18:35)
[2017-04-03] MEDS: LEVALBUTEROL 1.25MG/0.5ML NEB INH SCH ×4 (02:11→19:22)
[2017-04-03] MEDS: IPRATROPIUM BROMIDE NEB SOLN 0.02% 2.5 ML VIAL INH SCH ×4 (02:11→19:22)
[2017-04-03 03:09] LABS: MEAN CELL VOLUME 87.1 fL (80-100); MEAN CORPUSCULAR HEMOGLOBIN 29.7 pg (25-34); MEAN CORPUSCULAR HGB CONC 34.1 g/dl (32-36); RED BLOOD COUNT 4.48 M/uL (4.7-6.1); WHITE BLOOD COUNT 8.68 K/uL (4.8-10.8)
[2017-04-03 03:16] LABS: BASO % 0.1 %; BASO ABS # 0.01 K/uL (0-0.2); COMPLETE YES; EOS % 0.1 %; IG% 0.7 %; LYMPH % 15.2 %; LYMPH ABS # 1.32 K/uL (1.2-3.4); MEAN PLATELET VOLUME 11.6 fL (7.4-10.4); MONO % 8.1 %; NEUT % 75.8 %; PLATELET COUNT 72 K/uL (130-400)
[2017-04-03 03:26] LABS: CALCIUM 8.4 mg/dl (8.5-10.1); CREATININE 1.2 mg/dl (0.60-1.40); MAGNESIUM 2.2 mg/dl (1.8-2.4); POTASSIUM 4.2 mmol/L (3.5-5.1)
[2017-04-03 03:28] LABS: PARTIAL THROMBOPLASTIN RATIO 3.8
[2017-04-03] MEDS: HEPARIN 25,000 UNIT/500ML D5W 500 ML IV PRN ×2 (04:50→13:32)
[2017-04-03] MEDS: FAMOTIDINE IV INJ 20 MG in DEXTROSE 5% 100ML 100 ML IV SCH ×2 (06:10→18:37)
[2017-04-03] MEDS: SODIUM CHLORIDE 0.9% 1000ML 1,000 ML IV SCH ×2 (06:11→16:09)
[2017-04-03 08:42] LABS: PARTIAL THROMBOPLASTIN RATIO 3.3
[2017-04-03 12:13] LABS: PARTIAL THROMBOPLASTIN RATIO 2.6
[2017-04-03] MEDS ORDERED: NURSING VERBAL MED ORDER ONE (13:30)
[2017-04-03] MEDS: WARFARIN SOD 5 MG TAB PO SCH (16:10)
[2017-04-03] MEDS: CEFTRIAXONE SOD INJ 1 GM in DEXTROSE 5% ADD-VANTAGE 50ML 50 ML IV SCH (18:35)
[2017-04-03] MEDS: LEVOFLOXACIN / D5W 500 MG in PREMIXED IN D5W 100 ML IV SCH (18:36)
[2017-04-04 04:36] VITALS: BP 131/72; PULSE 79; TEMP 36.6; O2SAT 93
--- NOTE | 2017-04-04 06:13 | Progress Note ---
Subjective Date of Service: Apr 03, 2017. Subjective Pt evaluation today including: physical exam, chart review, lab review, review of studies (echo, doppler study RLE), review of inpatient medication list Pain: doesn't appear to have any PO Intake: per staff wnl Voiding: incontinence tele stable no issues overnight per staff during my visit he was pleasantly confused as a result of dementia he could not provide any meaningful history or ROS Problem List Medical Problems: (1) MCKAYLA (acute kidney injury) Status: Acute (2) Elevated troponin Status: Acute (3) Pneumonia Status: Acute (4) Pulmonary emboli Status: Acute (5) Pulmonary infiltrate in left lung on chest x-ray Status: Acute (6) Right atrial thrombus Status: Acute (7) Right leg DVT Status: Acute (8) Syncope Status: Acute Objective Vital Signs Date Time Temp Pulse Resp B/P (MAP) Pulse Ox O2 Delivery O2 Flow Rate FiO2 04/03/17 19:38 76 19 97 Room Air 04/03/17 19:29 36.4 76 18 128/69 (88) 04/03/17 16:00 95 Room Air 04/03/17 15:34 36.4 84 18 119/70 (86) 95 Room Air 04/03/17 14:15 84 15 96 Room Air 04/03/17 12:26 36.6 79 18 126/72 (90) 98 04/03/17 12:00 Room Air 04/03/17 08:45 Room Air 04/03/17 07:36 36.6 66 22 119/81 (94) 93 Room Air 04/03/17 04:43 36.4 78 16 135/85 (102) 96 Room Air 04/03/17 04:00 Room Air 04/03/17 02:11 79 16 93 Room Air 04/03/17 00:00 Room Air 04/02/17 23:33 36.6 91 16 105/66 (79) 95 Room Air 04/02/17 22:50 87 14 93 Room Air Physical Exam General Appearance: no apparent distress ENT: pharynx normal Neck: no JVD Respiratory/Chest: lungs clear, no respiratory distress, no accessory muscle use Cardiovascular: regular rate, rhythm, no gallop, no murmur Abdomen: normal bowel sounds, non tender, soft, no organomegaly Extremities: + pedal edema (right leg), + swelling (right leg) Neurologic/Psychiatric: alert, + disoriented Comments: right leg is noticeably larger than left leg Laboratory Results Last 24 Hours Test 04/03/17 02:48 04/03/17 07:53 04/03/17 11:45 White Blood Count 8.68 K/uL Red Blood Count 4.48 M/uL Hemoglobin 13.3 g/dL Hematocrit 39.0 % Mean Corpuscular Volume 87.1 fL Mean Corpuscular Hemoglobin 29.7 pg Mean Corpuscular Hemoglobin Concent 34.1 g/dl Platelet Count 72 K/uL Mean Platelet Volume 11.6 fL Neutrophils (%) (Auto) 75.8 % Lymphocytes (%) (Auto) 15.2 % Monocytes (%) (Auto) 8.1 % Eosinophils (%) (Auto) 0.1 % Basophils (%) (Auto) 0.1 % Neutrophils # (Auto) 6.58 K/uL Lymphocytes # (Auto) 1.32 K/uL Monocytes # (Auto) 0.70 K/uL Eosinophils # (Auto) 0.01 K/uL Basophils # (Auto) 0.01 K/uL RDW Standard Deviation 42.3 fL RDW Coefficient of Variation 13.2 % Immature Granulocyte % (Auto) 0.7 % Immature Granulocyte # (Auto) 0.06 K/uL Activated Partial Thromboplast Time 99.3 SECONDS 84.6 SECONDS 68.5 SECONDS Partial Thromboplastin Ratio 3.8 3.3 2.6 Sodium Level 143 mmol/L Potassium Level 4.2 mmol/L Chloride Level 113 mmol/L Carbon Dioxide Level 23 mmol/L Anion Gap 7.0 mmol/L Blood Urea Nitrogen 34 mg/dl Creatinine 1.20 mg/dl Est Creatinine Clear Calc Drug Dose 46.4 ml/min Estimated GFR () 63.5 Estimated GFR (Non- 54.8 BUN/Creatinine Ratio 28.0 Random Glucose 144 mg/dl Calcium Level 8.4 mg/dl Magnesium Level 2.2 mg/dl Assessment and Plan 86yo male - 1. syncope - suspected to be from right heart strain in the setting of suspected PEs. Has been hydrated, echo is stable, no further w/u. 2. RLE DVT - extensive - complicated by atrial thrombus and suspected PEs - on heparin drip. Start coumadin 5mg daily. Can likely transition to lovenox 1mg/kg SC q12h in melody of heparin drip ultimately while awaiting coumadin to become therapeutic. 3. ? pneumonia - doubt such; stop abx and steroids. 4. FEN - stop fluids, lytes are stable. 5. dementia - noted, stable. 6. abnormal LFTs - 2nd to right heart strain in setting of suspected PEs? repeat in am. 7. myocardial demand ischemia - mildly elevated troponin likely due to acute kidney injury or right heart strain. 8. acute kidney injury - suspect due to VTE - repeat BMP in am. 9. BPH - continue alpha chana & finasteride. PT, OT evals update family when able Continued [facility] stay due to: multiple IV medications needed Discharge planning: uncertain
[2017-04-04 06:36] LABS: INR 1.2 (0.9-1.1); PARTIAL THROMBOPLASTIN RATIO 2.4
[2017-04-04] MEDS: HEPARIN 25,000 UNIT/500ML D5W 500 ML IV PRN (06:36)
[2017-04-04 06:41] LABS: BLOOD UREA NITROGEN 25 mg/dl (7-18); BUN/CREATININE RATIO 22.7 (10-20); CARBON DIOXIDE 23 mmol/L (21-32); CHLORIDE 111 mmol/L (98-107); GLUCOSE 112 mg/dl (70-99); SODIUM 139 mmol/L (136-145)
--- NOTE | 2017-04-04 07:26 | DIAGNOSTIC IMAGING REPORT ---
CHEST ONE VIEW PORTABLE HISTORY: 86 years-old Male question of pneumonia on cxr from 04/02 decreased responsiveness with acute strokelike symptoms. Follow-up study to assess left lower lobe opacity. COMPARISON: Portable chest radiograph 04/02/2017 TECHNIQUE: Semiupright AP view of the chest FINDINGS: Cardiac silhouette is mildly enlarged. Pulmonary vascular congestion is noted without overt pulmonary edema. There is no pneumothorax or pleural effusion. Subtle subsegmental left basilar opacities are present with improved aeration compared to prior study. There is mild right hemidiaphragmatic elevation. There is atherosclerosis of the aorta. The bones are grossly intact. IMPRESSION: 1. Improved aeration of the left lung base. Subtle subsegmental left basilar opacity favors atelectasis. 2. Cardiomegaly with pulmonary vascular congestion. No overt pulmonary edema. The above report was generated using voice recognition software. It may contain grammatical, syntax or spelling errors. Electronically signed by: Rasheed Sim M.D. 04/04/2017 7:24 AM Dictated Date/Time: 04/04/2017 7:22 AM
[2017-04-04 07:34] VITALS: BP 177/97; PULSE 70; TEMP 36.5; O2SAT 95
[2017-04-04 08:12] LABS: BASO % 0.1 %; BASO ABS # 0.01 K/uL (0-0.2); EOS % 0.7 %; HEMATOCRIT 40.2 % (42-52); IG% 1.3 %; LYMPH % 19.3 %; LYMPH ABS # 1.64 K/uL (1.2-3.4); MEAN CELL VOLUME 88.2 fL (80-100); MEAN CORPUSCULAR HEMOGLOBIN 29.6 pg (25-34); MEAN CORPUSCULAR HGB CONC 33.6 g/dl (32-36); MEAN PLATELET VOLUME 11.5 fL (7.4-10.4); MONO % 7.6 %; PARTIAL THROMBOPLASTIN RATIO 2.9; PLATELET COUNT 111 K/uL (130-400); RED BLOOD COUNT 4.56 M/uL (4.7-6.1)
[2017-04-04 08:47] LABS: COMPLETE YES; ECHINOCYTES 1+
[2017-04-04 11:17] VITALS: BP 177/96; PULSE 71; TEMP 36.3; O2SAT 95
[2017-04-04 13:33] LABS: PARTIAL THROMBOPLASTIN RATIO 2.4
[2017-04-04 15:26] VITALS: BP 164/92; PULSE 75; TEMP 36.4; O2SAT 95
[2017-04-04] MEDS: WARFARIN SOD 5 MG TAB PO SCH (16:52)
[2017-04-04 20:00] VITALS: O2SAT 95
--- NOTE | 2017-04-04 20:06 | Progress Note ---
Subjective Date of Service: Apr 04, 2017. Subjective Pt evaluation today including: conversation w/ family (grand-daughter, POA - at bedside), physical exam, chart review, lab review, review of inpatient medication list Pain: nothing apparent PO Intake: normal per staff Voiding: incontinence no issues overnight tele with ?junctional rhythm (intermittent) but no symptoms due to patient's dementia any meaningful history is unobtainable ROS also unobtainable Problem List Medical Problems: (1) MCKAYLA (acute kidney injury) Status: Acute (2) Elevated troponin Status: Acute (3) Pneumonia Status: Acute (4) Pulmonary emboli Status: Acute (5) Pulmonary infiltrate in left lung on chest x-ray Status: Acute (6) Right atrial thrombus Status: Acute (7) Right leg DVT Status: Acute (8) Syncope Status: Acute Objective Vital Signs Date Time Temp Pulse Resp B/P (MAP) Pulse Ox O2 Delivery O2 Flow Rate FiO2 04/04/17 16:00 Room Air 04/04/17 15:26 36.4 75 20 164/92 (116) 95 04/04/17 12:00 Room Air 04/04/17 11:17 36.3 71 16 177/96 (123) 95 Room Air 04/04/17 08:00 Room Air 04/04/17 07:34 36.5 70 16 177/97 (123) 95 Room Air 04/04/17 04:36 36.6 79 20 131/72 (91) 93 Room Air 04/04/17 04:00 Room Air 04/04/17 00:00 Room Air 04/03/17 23:03 36.8 81 20 143/96 (112) 95 Room Air 04/03/17 20:00 Room Air Physical Exam General Appearance: no apparent distress ENT: pharynx normal Neck: no JVD Respiratory/Chest: lungs clear, no respiratory distress, no accessory muscle use Cardiovascular: regular rate, rhythm, no gallop, + systolic murmur (2/6 RUSB/ LSB) Abdomen: normal bowel sounds, non tender, soft, no organomegaly Extremities: + pertinent finding (right calf is larger than left calf) Neurologic/Psychiatric: alert, + disoriented, + pertinent finding (speech is nonfluent) Laboratory Results Last 24 Hours Test 04/04/17 05:32 04/04/17 07:37 04/04/17 13:05 Prothrombin Time 13.0 SECONDS Prothromb Time International Ratio 1.2 Activated Partial Thromboplast Time 62.5 SECONDS 76.2 SECONDS 62.8 SECONDS Partial Thromboplastin Ratio 2.4 2.9 2.4 Sodium Level 139 mmol/L Potassium Level mmol/L 4.0 mmol/L Chloride Level 111 mmol/L Carbon Dioxide Level 23 mmol/L Anion Gap 5.0 mmol/L Blood Urea Nitrogen 25 mg/dl Creatinine 1.10 mg/dl Est Creatinine Clear Calc Drug Dose 51.0 ml/min Estimated GFR () 70.6 Estimated GFR (Non- 60.9 BUN/Creatinine Ratio 22.7 Random Glucose 112 mg/dl Calcium Level 9.0 mg/dl White Blood Count 8.50 K/uL Red Blood Count 4.56 M/uL Hemoglobin 13.5 g/dL Hematocrit 40.2 % Mean Corpuscular Volume 88.2 fL Mean Corpuscular Hemoglobin 29.6 pg Mean Corpuscular Hemoglobin Concent 33.6 g/dl Platelet Count 111 K/uL Mean Platelet Volume 11.5 fL Neutrophils (%) (Auto) 71.0 % Lymphocytes (%) (Auto) 19.3 % Monocytes (%) (Auto) 7.6 % Eosinophils (%) (Auto) 0.7 % Basophils (%) (Auto) 0.1 % Neutrophils # (Auto) 6.03 K/uL Lymphocytes # (Auto) 1.64 K/uL Monocytes # (Auto) 0.65 K/uL Eosinophils # (Auto) 0.06 K/uL Basophils # (Auto) 0.01 K/uL RDW Standard Deviation 42.6 fL RDW Coefficient of Variation 13.2 % Immature Granulocyte % (Auto) 1.3 % Immature Granulocyte # (Auto) 0.11 K/uL Echinocytes 1+ Assessment and Plan 86yo male - 1. syncope - suspected to be from right heart strain in the setting of suspected PEs. Has been hydrated, echo is stable, no further w/u. 2. RLE DVT - extensive - complicated by atrial thrombus and suspected PEs - on heparin drip. day #2 of coumadin 5mg daily. Can likely transition to lovenox 1mg/kg SC q12h in melody of heparin drip; will do so tomorrow am. 3. ? pneumonia - cxr today is stable and improved; abx d/c. 4. FEN - stop fluids, lytes are stable. 5. dementia - noted, stable. Resume namenda. 6. abnormal LFTs - 2nd to right heart strain in setting of suspected PEs? repeat in am. 7. myocardial demand ischemia - mildly elevated troponin likely due to acute kidney injury or right heart strain. repeat troponin in am. 8. acute kidney injury - suspect due to VTE - resolved. 9. BPH - continue alpha chana & finasteride. PT, DEVAN granados updated grand-daughter today extensively at bedside she reports that the pt's wishes to keep him at home as long as it is feasible they confirm they have private caregivers and they are planning to have private caregivers at night-time as well discussed with pt's granddaughter that immobility was likely cause of his DVT/ VTE cannot rule out occult malignancy (has h/o left-sided renal cell ca s/p surgery ) but given age and advanced dementia will not pursue w/u Continued [facility] stay due to: multiple IV medications needed Discharge planning: home with home health
[2017-04-04] MEDS ORDERED: MEMANTINE 10 MG TAB PO SCH (21:00)
[2017-04-04] MEDS: NITROFURANTOIN MONOHYDRATE 100 MG CAP PO SCH (21:28)
[2017-04-05] VITALS (11 sets, daily range): BP systolic 143–174; BP diastolic 84–101; PULSE 75–122; TEMP 36.1–36.8; O2SAT 82–96
[2017-04-05] MEDS: HEPARIN 25,000 UNIT/500ML D5W 500 ML IV PRN (03:07)
[2017-04-05] MEDS: ENOXAPARIN 80 MG/0.8 ML SYR SQ SCH ×2 (05:34→21:02)
[2017-04-05 06:16] LABS: BASO % 0.5 %; BASO ABS # 0.03 K/uL (0-0.2); COMPLETE YES; EOS % 6.4 %; HEMATOCRIT 43.8 % (42-52); IG% 2.7 %; LYMPH % 25.8 %; LYMPH ABS # 1.45 K/uL (1.2-3.4); MEAN CELL VOLUME 85.7 fL (80-100); MEAN CORPUSCULAR HEMOGLOBIN 29.9 pg (25-34); MEAN CORPUSCULAR HGB CONC 34.9 g/dl (32-36); MEAN PLATELET VOLUME 10.9 fL (7.4-10.4); MONO % 7.3 %; NEUT % 57.3 %; PLATELET COUNT 133 K/uL (130-400); RED BLOOD COUNT 5.11 M/uL (4.7-6.1); WHITE BLOOD COUNT 5.63 K/uL (4.8-10.8)
[2017-04-05 06:25] LABS: INR 1.5 (0.9-1.1); PROTHROMBIN TIME (PATIENT) 16.1 SECONDS (9.0-12.0)
[2017-04-05 07:03] LABS: PARTIAL THROMBOPLASTIN RATIO 2.5
[2017-04-05 07:17] LABS: BUN/CREATININE RATIO 18.2 (10-20); CALCIUM 9.4 mg/dl (8.5-10.1); CREATININE 1.1 mg/dl (0.60-1.40); POTASSIUM 3.8 mmol/L (3.5-5.1)
[2017-04-05] MEDS: NITROFURANTOIN MONOHYDRATE 100 MG CAP PO SCH ×2 (09:13→21:02)
[2017-04-05] MEDS: FINASTERIDE 5 MG TAB PO SCH (09:14)
[2017-04-05] MEDS: MEMANTINE 10 MG TAB PO SCH (09:14)
[2017-04-05] MEDS: WARFARIN SOD 5 MG TAB PO SCH (17:19)
[2017-04-05] MEDS ORDERED: NIFEdipine 30 MG CR TAB PO STA (18:13)
--- NOTE | 2017-04-05 20:33 | Progress Note ---
Subjective Date of Service: Apr 05, 2017. Subjective Pt evaluation today including: conversation w/ family (grand-daughter, POA - by phone), physical exam, chart review, lab review Pain: nothing obvious PO Intake: eating 100% meals Voiding: incontinence tele overnight normal no issues per staff pleasantly confused due to dementia unable to obtain any meaningful history or ROS worked with PT, OT today Problem List Medical Problems: (1) MCKAYLA (acute kidney injury) Status: Acute (2) Elevated troponin Status: Acute (3) Pneumonia Status: Acute (4) Pulmonary emboli Status: Acute (5) Pulmonary infiltrate in left lung on chest x-ray Status: Acute (6) Right atrial thrombus Status: Acute (7) Right leg DVT Status: Acute (8) Syncope Status: Acute Objective Vital Signs Date Time Temp Pulse Resp B/P (MAP) Pulse Ox O2 Delivery O2 Flow Rate FiO2 04/05/17 20:00 Room Air 04/05/17 19:15 36.6 122 18 171/96 (121) 82 Room Air 04/05/17 16:00 94 Room Air 04/05/17 15:40 36.6 80 14 174/95 (121) 94 Room Air 04/05/17 12:00 96 Room Air 04/05/17 11:28 36.4 80 16 162/84 (110) 95 Room Air 04/05/17 08:00 95 Room Air 04/05/17 07:40 36.1 75 16 158/95 (116) 95 Room Air 04/05/17 04:00 36.8 77 20 151/91 (111) 94 04/05/17 04:00 94 Room Air 04/05/17 00:02 36.7 90 20 143/90 (107) 93 Room Air 04/05/17 00:00 95 Room Air Physical Exam General Appearance: no apparent distress ENT: pharynx normal Neck: no JVD Respiratory/Chest: no respiratory distress, no accessory muscle use, + rales ( fine, RLL only) Cardiovascular: regular rate, rhythm, no gallop, no murmur Abdomen: normal bowel sounds, non tender, soft, no organomegaly Extremities: + pertinent finding (right calf is larger than left calf but no edema) Neurologic/Psychiatric: alert, + disoriented Laboratory Results Last 24 Hours Test 04/05/17 06:03 White Blood Count 5.63 K/uL Red Blood Count 5.11 M/uL Hemoglobin 15.3 g/dL Hematocrit 43.8 % Mean Corpuscular Volume 85.7 fL Mean Corpuscular Hemoglobin 29.9 pg Mean Corpuscular Hemoglobin Concent 34.9 g/dl Platelet Count 133 K/uL Mean Platelet Volume 10.9 fL Neutrophils (%) (Auto) 57.3 % Lymphocytes (%) (Auto) 25.8 % Monocytes (%) (Auto) 7.3 % Eosinophils (%) (Auto) 6.4 % Basophils (%) (Auto) 0.5 % Neutrophils # (Auto) 3.23 K/uL Lymphocytes # (Auto) 1.45 K/uL Monocytes # (Auto) 0.41 K/uL Eosinophils # (Auto) 0.36 K/uL Basophils # (Auto) 0.03 K/uL RDW Standard Deviation 41.1 fL RDW Coefficient of Variation 13.1 % Immature Granulocyte % (Auto) 2.7 % Immature Granulocyte # (Auto) 0.15 K/uL Prothrombin Time 16.1 SECONDS Prothromb Time International Ratio 1.5 Activated Partial Thromboplast Time 65.2 SECONDS Partial Thromboplastin Ratio 2.5 Sodium Level 142 mmol/L Potassium Level 3.8 mmol/L Chloride Level 108 mmol/L Carbon Dioxide Level 28 mmol/L Anion Gap 6.0 mmol/L Blood Urea Nitrogen 20 mg/dl Creatinine 1.10 mg/dl Est Creatinine Clear Calc Drug Dose 51.3 ml/min Estimated GFR () 70.6 Estimated GFR (Non- 60.9 BUN/Creatinine Ratio 18.2 Random Glucose 120 mg/dl Calcium Level 9.4 mg/dl Total Bilirubin 0.7 mg/dl Direct Bilirubin 0.2 mg/dl Aspartate Amino Transf (AST/SGOT) 41 U/L Alanine Aminotransferase (ALT/SGPT) 52 U/L Alkaline Phosphatase 113 U/L Troponin I 0.054 ng/ml Total Protein 6.6 gm/dl Albumin 3.0 gm/dl Assessment and Plan 86yo male - 1. syncope - suspected to be from right heart strain in the setting of suspected PEs. Has been hydrated, echo is stable, no further w/u. 2. RLE DVT - extensive - complicated by atrial thrombus and suspected PEs - transitioned to lovenox 1mg/kg q12h. day #3 of coumadin 5mg daily. INR 1.5 today and steadily climbing no change in coumadin dose today 3. ? pneumonia - ruled out; abx stopped 4. FEN - lytes stable, eating very well 5. dementia - noted, stable. Resumed namenda. 6. abnormal LFTs - 2nd to right heart strain in setting of suspected PEs? repeat today nearly normal 7. myocardial demand ischemia - mildly elevated troponin likely due to acute kidney injury or right heart strain. repeat troponin today improved 8. acute kidney injury - suspect due to VTE - resolved. 9. BPH - continue alpha chana & finasteride. 10. HTN - uncontrolled - add CCB; follow PT, OT darwin appreciated updated grand-daughter 04/04/17 extensively at bedside and again by phone 04/05/17 she reports that the pt's wishes to keep him at home as long as it is feasible they confirm they have private caregivers and they are planning to have private caregivers at night-time as well grand-daughter today confirms they are working on the night-time coverage discussed with pt's granddaughter that immobility was likely cause of his DVT/ VTE cannot rule out occult malignancy (has h/o left-sided renal cell ca s/p surgery ) but given age and advanced dementia will not pursue w/u can d/c home once 24-[address] in place can d/c telemetry Discharge planning: home with home health
[2017-04-06] VITALS: BP 133/88; PULSE 84; TEMP 36.6; O2SAT 93
[2017-04-06] MEDS: ENOXAPARIN 80 MG/0.8 ML SYR SQ SCH ×2 (07:16→19:33)
[2017-04-06 07:23] VITALS: BP 115/87; PULSE 86; TEMP 36.8; O2SAT 93
[2017-04-06 08:12] LABS: PLATELET COUNT 137 K/uL (130-400)
[2017-04-06] MEDS: NITROFURANTOIN MONOHYDRATE 100 MG CAP PO SCH ×2 (08:13→21:03)
[2017-04-06] MEDS: FINASTERIDE 5 MG TAB PO SCH (08:14)
[2017-04-06] MEDS: MEMANTINE 10 MG TAB PO SCH (08:14)
[2017-04-06] MEDS: NIFEdipine 30 MG CR TAB PO SCH (08:14)
[2017-04-06 08:25] LABS: INR 2.6 (0.9-1.1); PROTHROMBIN TIME (PATIENT) 28.8 SECONDS (9.0-12.0)
[2017-04-06 08:39] LABS: CREATININE 0.93 mg/dl (0.60-1.40)
--- NOTE | 2017-04-06 08:57 | Hospitalist Progress Note ---
Hospitalist Progress Note Date of Service Apr 06, 2017. (Tessa Dickey PA-C) Subjective Pt evaluation today including: conversation w/ patient, physical exam, chart review, lab review, review of studies Pain: None PO Intake: Good Voiding: no voiding problems The patient was seen and examined this morning. Pt was sleeping upon entry but easily woke up to verbal stimuli. He denies any acute complaints, feels well, states he's tired. Pt is not oriented at all. Constitutional: + fatigue, No fever Respiratory: + cough, No shortness of breath Cardiovascular: No chest pain, No palpitations Abdomen: No pain, No nausea Musculoskeletal: No joint pain, No muscle pain Neurologic: No weakness (Tessa Dickey PA-C) Objective Vital Signs Date Time Temp Pulse Resp B/P (MAP) Pulse Ox O2 Delivery O2 Flow Rate FiO2 04/06/17 08:40 Room Air 04/06/17 07:23 36.8 86 20 115/87 (96) 93 Room Air 04/06/17 00:00 36.6 84 20 133/88 (103) 93 Room Air 04/06/17 00:00 Room Air 04/05/17 21:04 83 158/101 (120) 94 Room Air 04/05/17 20:00 Room Air 04/05/17 19:15 36.6 122 18 171/96 (121) 82 Room Air 04/05/17 16:00 94 Room Air 04/05/17 15:40 36.6 80 14 174/95 (121) 94 Room Air 04/05/17 12:00 96 Room Air 04/05/17 11:28 36.4 80 16 162/84 (110) 95 Room Air (Tessa Dickey PA-C) Physical Exam General Appearance: WD/WN, no apparent distress Eyes: PERRL, EOMI ENT: hearing grossly normal, pharynx normal Neck: supple, no JVD Respiratory/Chest: no accessory muscle use, + pertinent finding (On room air, diminished breath sounds at bases but likely due to poor ability to follow command to take deep breath, no adventitious breath sounds) Cardiovascular: regular rate, rhythm, no murmur Abdomen: non tender Extremities: non-tender, normal inspection, no calf tenderness Neurologic/Psychiatric: alert, + disoriented, + pertinent finding (Follows some commands appropriately, less than 50%) Skin: normal color, warm/dry (Tessa Dickey, SULLY) Laboratory Results Last 24 Hours Test 04/06/17 08:02 Platelet Count 137 K/uL Prothrombin Time 28.8 SECONDS Prothromb Time International Ratio 2.6 Creatinine 0.93 mg/dl Est Creatinine Clear Calc Drug Dose 60.7 ml/min Estimated GFR () 86.5 Estimated GFR (Non- 74.6 (Tessa Dickey PA-C) Assessment and Plan 86yo male - Syncope - suspected to be from right heart strain in the setting of suspected PEs. Has been hydrated, echo is stable, no further w/u. RLE DVT - extensive - complicated by atrial thrombus and suspected PEs - transitioned to lovenox 1mg/kg q12h. - day #4 of coumadin, INR is therapeutic today, so will decrease to 2.5mg daily tonight. Pt is on chronic macrobid so likely that this is potentiating INR elevation. - INR 2.6 - Etiology possible from immobility, although cannot rule out occult malignancy (has h/o left-sided renal cell ca s/p surgery) but given age and advanced dementia will not pursue w/u Myocardial demand ischemia - mildly elevated troponin likely due to acute kidney injury or right heart strain. - repeat troponin was improved HTN - uncontrolled - nicardipine 30 mg daily added on 04/05 - BP seems to be much better controlled at this point. Dementia - noted, stable. - Resumed namenda. Abnormal LFTs - 2nd to right heart strain in setting of suspected PEs initially is now RESOLVED. Acute kidney injury - suspect due to VTE - resolved. BPH - continue alpha chana & finasteride. DVT ppx: as above CODE STATUS: DNR Disposition: From home, CM assisting with increasing in home nursing coverage from 12 H daily to 24. Family wishes to keep pt at home, can d/c home once 24 -[address] in place, likely within 1 days. (Tessa Dickey PA-C) Attending Attestation: Pt seen/examined, chart reviewed, care plan d/w PA Alejandrina Filipowicz. I agree w/ the martell components of her documentation. No events overnight. Pleasantly confused due to dementia. ROS unobtainable due to dementia. VSS o2 sats nl in RA gen - pleasantly confused neck - no JVD mouth - MMM heart - RRR lungs - CTA b/l abd - soft, NT, ND ext - right calf is much larger than left calf, no edema INR 2.6 today A/P: RLE DVT, atrial thrombus, and suspected PEs - on lovenox 1mg/kg BID and coumadin. Rather large jump in INR over just 3 days. Will lower coumadin to 2.5mg daily starting today. INR in am. spoke with grand-daughter, GAIL, today. they are securing 23/02 private duty caregivers for his home. they anticipate they will have this all in place by Thursday. he can likely d/c home tomorrow. will ask SW to arrange home health services to help with lovenox as well; anticipate he would only need 1-2 more days of such. Blas CAMPOS MD (Rommel Campos MD)
[2017-04-06 15:16] VITALS: BP 119/72; PULSE 81; TEMP 36.4; O2SAT 94
[2017-04-06 16:00] VITALS: O2SAT 94
[2017-04-06] MEDS ORDERED: WARFARIN SOD 2.5 MG TAB PO SCH (16:00)
[2017-04-06 21:07] VITALS: BP 144/85; PULSE 86; O2SAT 94
[2017-04-06 23:58] VITALS: BP 148/92; PULSE 98; TEMP 36.9; O2SAT 97
[2017-04-07] MEDS: ENOXAPARIN 80 MG/0.8 ML SYR SQ SCH ×2 (06:27→17:00)
[2017-04-07 06:43] LABS: HEMATOCRIT 42.1 % (42-52); MEAN CELL VOLUME 86.4 fL (80-100); MEAN CORPUSCULAR HGB CONC 34.7 g/dl (32-36); MEAN PLATELET VOLUME 10.3 fL (7.4-10.4); PLATELET COUNT 139 K/uL (130-400); RED BLOOD COUNT 4.87 M/uL (4.7-6.1); WHITE BLOOD COUNT 4.96 K/uL (4.8-10.8)
[2017-04-07 06:53] LABS: INR 2.6 (0.9-1.1); PROTHROMBIN TIME (PATIENT) 29.4 SECONDS (9.0-12.0)
[2017-04-07 07:14] VITALS: BP 152/90; PULSE 78; TEMP 36.5; O2SAT 95
[2017-04-07 07:25] LABS: CALCIUM 8.9 mg/dl (8.5-10.1); CREATININE 0.99 mg/dl (0.60-1.40); POTASSIUM 4.2 mmol/L (3.5-5.1)
--- NOTE | 2017-04-07 08:54 | Discharge Instructions ---
Discharge Instructions Date of Service Apr 07, 2017. Admission Reason for Admission: Acute Dvt Of Rt Lower Extremity, Lt Lower Lobe Pne Discharge Discharge Diagnosis / Problem: Acute DVT of the Right lower extremity, Left lower lobe pneumonia Discharge Goals Goal(s): Decrease discomfort, Improve function Activity Recommendations Activity Limitations: per Instructions/Follow-up section Lifting Limitations: no more than 10 pounds, gradually increase as tolerated Exercise/Sports Limitations: rest today, gradually increase as tolerated May Resume Sexual Activity: when tolerated Shower/Bathe: no limitations Driving or Machine Use: DO NOT DRIVE . Instructions / Follow-Up Instructions / Follow-Up You were admitted to [facility] with Right leg swelling and shortness of breath and diagnosed with Right DVT ( right leg blood clot) and pulmonary embolism (blood clot in the lung) due to findings of an extensive atrial clot as seen on ultrasound of the heart. - During your stay here you were treated with blood thinning agents and transitioned to oral blood thinning agent (Coumadin) and other supportive care. Medications: - Continue taking coumadin 2.5 mg by mouth daily in the evening. Home health should draw INR starting tomorrow morning on 04/08 and continue daily INR draws for 5 days and forward results to his PCP, Dr. Donte Willard. The dosage should of coumadin will be adjusted accordingly per your family doctor. INR = 2.6 at time of discharge. Your dose of coumadin will alternate between 2.5 and 5 mg. Take 2.5 mg on -- and then 5 mg on --. Take lovenox injection tonight, then tomorrow morning and afternoon. Lovenox teaching was done in the hospital. Home health services can administer this to you tomorrow morning. A family member will need to administer this tomorrow evening. Appointments: Follow up with your Primary Care Provider within 1 week. - Have INR drawn tomorrow morning with home health, then as needed per your family physician. Current Hospital Diet Patient's current hospital diet: Regular Diet Discharge Diet Recommended Diet: Regular Diet Pending Studies Studies pending at discharge: no Medical Emergencies . Who to Call and When: Medical Emergencies: If at any time you feel your situation is an emergency, please call 911 immediately. . Non-Emergent Contact Non-Emergency issues call your: Primary Care Provider Call Non-Emergent contact if: you have a fever, temperature is above 100.5, your pain is not controlled, your pain is worsening, your pain is unusual for you, your pain is concerning you, you have any medication questions other concerns with your health. Call 911 or go directly to the Emergency Department if you experience any of the following: Chest pain, chest tightness, shortness of breath, abdominal pain , lightheadedness, dizziness, gastrointestinal bleeding, or have any other concerns regarding your health. . "Provider Documentation" section prepared by Alejandrina Dickey. Attending Attestation: Pt's discharge care plan d/w KOURTNEY Dickey on the day of discharge. I agree with her discharge instructions as outlined. Rommel Mckay MD . VTE Core Measure Inpt VTE Proph given/why not?: Enoxaparin (Lovenox)SQ, Warfarin (Coumadin)
[2017-04-07] MEDS ORDERED: POLYETHYLENE (MIRALAX) 17 GM PACK PO SCH (09:00)
[2017-04-07] MEDS ORDERED: CMD25 PO ×2 (09:08→14:32)
[2017-04-07] MEDS ORDERED: LVNIS80 SQ ×2 (09:08→10:35)
[2017-04-07] MEDS: NIFEdipine 30 MG CR TAB PO SCH (09:10)
[2017-04-07] MEDS: NITROFURANTOIN MONOHYDRATE 100 MG CAP PO SCH (09:10)
[2017-04-07] MEDS: FINASTERIDE 5 MG TAB PO SCH (09:10)
[2017-04-07] MEDS: MEMANTINE 10 MG TAB PO SCH (09:10)
[2017-04-07 09:17] VITALS: O2SAT 94
[2017-04-07] MEDS ORDERED: NIFE1TAB13 PO (10:07)
[2017-04-07] MEDS ORDERED: NMN10 PO (10:10)
[2017-04-07] MEDS ORDERED: BISACODYL 10 MG SUPP PR PRN (10:30)
--- NOTE | 2017-04-07 10:34 | Discharge Summary ---
Discharge Summary Date of Service Apr 07, 2017. (Tessa Dickey PA-C) Discharge Summary Admission Date: Apr 02, 2017 at 15:05 Discharge Date: Apr 07, 2017 Discharge Disposition: Home with services Principal Diagnosis: RLE DVT, Atrial thrombus, suspected PE causing shortness of breath. Problems/Secondary Diagnoses: RLE DVT Presumed PE's Atrial clot 2x3cm HTN Dementia MCKAYLA now resolved BPH Abnormal LFTs Immunizations: Have You Had Influenza Vaccine: N/A History of Tetanus Vaccine?: No History of Pneumococcal: No History of Hepatitis B Vaccine: No Procedures: RIGHT LOWER EXTREMITY VENOUS DOPPLER HISTORY: Right leg swelling. right leg eval for dvt Right COMPARISON STUDY: None. FINDINGS: There is occlusive thrombus within the right superficial femoral vein, popliteal vein, posterior tibial veins, and peroneal veins. The common femoral vein and anterior tibial veins appear patent. IMPRESSION: Extensive occlusive DVT within the right lower extremity as described above. Electronically signed by: Luis Heck M.D. 04/02/2017 2:19 PM Dictated Date/Time: 04/02/2017 2:18 PM The status of this report is Signed. HEAD WITHOUT CONTRAST (CT) CLINICAL HISTORY: 86 years-old Male presenting with Stroke. TECHNIQUE: Multidetector CT imaging of the head was performed without the use of intravenous contrast. IV contrast: None. A dose lowering technique was used consistent with the principles of ALARA (as low as reasonably achievable). COMPARISON: 06/20/2016. CT DOSE (mGy.cm): The estimated cumulative dose is 614.27 mGy.cm. FINDINGS: Fountain Manager topogram: Unremarkable. Proportional ventricular and sulcal prominence, likely age-related parenchymal volume loss. Periventricular and subcortical white matter hypoattenuation, nonspecific but likely indicative of chronic small vessel ischemic change. No mass effect or midline shift. No hemorrhage or acute territorial infarct. No extra-axial fluid collection. Paranasal sinuses and mastoid air cells clear. Calvarium intact. IMPRESSION: 1. No acute intracranial pathology. Electronically signed by: Donte Mendez M.D. 04/02/2017 1:22 PM Dictated Date/Time: 04/02/2017 1:19 PM The status of this report is Signed. CHEST ONE VIEW PORTABLE CLINICAL HISTORY: Stroke alert. COMPARISON STUDY: Chest radiograph July 25, 2016. FINDINGS: This study is mildly compromised by motion artifact. There is mild left lower lung opacity. Cardiomegaly is noted without evidence of pulmonary edema. No pneumothorax or pleural effusion is noted. There is mild elevation of the right hemidiaphragm. IMPRESSION: 1. Mild left lower lung opacity. This could reflect atelectasis or epicardial fat pad. However, pneumonia could appear similar. Radiographic follow up to ensure resolution is recommended. 2. Stable cardiomegaly without evidence of pulmonary edema. 3. Study mildly compromised by motion artifact. Electronically signed by: Brian Castañeda M.D. 04/02/2017 1:56 PM Dictated Date/Time: 04/02/2017 1:55 PM The status of this report is Signed. CHEST ONE VIEW PORTABLE HISTORY: 86 years-old Male question of pneumonia on cxr from 04/02 decreased responsiveness with acute strokelike symptoms. Follow-up study to assess left lower lobe opacity. COMPARISON: Portable chest radiograph 04/02/2017 TECHNIQUE: Semiupright AP view of the chest FINDINGS: Cardiac silhouette is mildly enlarged. Pulmonary vascular congestion is noted without overt pulmonary edema. There is no pneumothorax or pleural effusion. Subtle subsegmental left basilar opacities are present with improved aeration compared to prior study. There is mild right hemidiaphragmatic elevation. There is atherosclerosis of the aorta. The bones are grossly intact. IMPRESSION: 1. Improved aeration of the left lung base. Subtle subsegmental left basilar opacity favors atelectasis. 2. Cardiomegaly with pulmonary vascular congestion. No overt pulmonary edema. The above report was generated using voice recognition software. It may contain grammatical, syntax or spelling errors. Electronically signed by: Rasheed Sim M.D. 04/04/2017 7:24 AM Dictated Date/Time: 04/04/2017 7:22 AM The status of this report is Signed. Consultations: Cardiology (Tessa Dickey, SULLY) Problems/Secondary Diagnoses: 1. +troponin, likely myocardial demand ischemia in setting of acute VTE vs right heart strain 2. mild aortic stenosis 3. syncope - suspect due to presumed PEs 4. thrombocytopenia - chronic 5. h/o left-sided renal cell carcinoma Procedures: echocardiogram: -- Conclusions -- There is borderline concentric left ventricular hypertrophy. Left ventricular systolic function is normal. The right ventricle is mildly dilated. There is extensive thrombus noted within the right atrium. This measures approximately 2 by 3 centimeters in dimension Injection of contrast documented no interatrial shunt. Mild valvular aortic stenosis. (Rommel Mckay MD) Medication Reconciliation New Medications: Enoxaparin (Lovenox) 80 Mg/0.8 Ml Inj 80 MG SQ Q12H for 1 Day, #2 SYR Nifedipine (Adalat cc) 30 Mg Tab 30 MG PO QAM for 30 Days, #30 TAB Warfarin Sod (Coumadin) 2.5 Mg Tab 2.5 MG PO UD for 30 Days, #60 TAB Take 2.5 mg on Mon,Wed,Fri and 5 mg on , , Thu, Sun Changed Medications: Memantine (Namenda) 10 Mg Tab 1 TAB PO DAILY for 30 Days, #30 TAB 0 Refills (Changed from: 10 MG; BID; Refills : ) Continued Medications: Finasteride (Proscar) 5 Mg Tab 1 TAB PO DAILY for 90 Days, #90 TAB 1 Refill Nitrofurantoin Macrocrystals (Macrodantin) 100 Mg Cap 1 CAP PO BID for 10 Days, #20 CAP Terazosin Hcl (Hytrin) 10 Mg Cap 1 CAP PO HS for 90 Days, CAP 1 Refill Discharge Exam The patient was seen and examined this morning. Pt is talking clearly and speaking in sentences occasionally. He primarily has one word answers, but is following more commands today as well. He denies any acute pain or shortness of breath. He does not offer acute complaints. ROS: Constitutional: + fatigue, No fever Respiratory: + cough, No shortness of breath Cardiovascular: No chest pain, No palpitations Abdomen: No pain, No nausea Musculoskeletal: No joint pain, No muscle pain Neurologic: No weakness PE: General Appearance: WD/WN, no apparent distress Eyes: PERRL, EOMI ENT: hearing grossly normal, pharynx normal Neck: supple, no JVD Respiratory/Chest: no accessory muscle use, + pertinent finding (On room air, diminished breath sounds at bases but likely due to poor ability to follow command to take deep breath, no adventitious breath sounds) Cardiovascular: regular rate, rhythm, no murmur Abdomen: non tender Extremities: non-tender, normal inspection, no calf tenderness Neurologic/Psychiatric: alert, + disoriented, + pertinent finding (Follows some commands appropriately, less than 50%) Skin: normal color, warm/dry (Tessa Dickey, SULLY) Hospital Course History of Present Illness Source: patient, family, hospital records The patient is an 86-year-old male with known progressive severe dementia who his caregiver reports had a syncopal episode earlier in the day prior to arrival. His family had noted some increased swelling in the right leg over the past several days, but he had not reported any leg pain or difficulty with breathing or chest pain. Physical Exam Vital Signs Date Time Temp Pulse Resp B/P (MAP) Pulse Ox O2 Delivery O2 Flow Rate FiO2 04/02/17 16:17 96 18 131/91 95 04/02/17 15:36 98 18 130/86 96 Room Air 04/02/17 14:11 104 94 04/02/17 14:10 154/73 04/02/17 13:41 105 92 04/02/17 13:36 95 Room Air 04/02/17 13:36 106 95 04/02/17 13:32 128/87 04/02/17 13:22 104/66 04/02/17 13:06 107 30 93 04/02/17 13:02 36.8 106 25 99/65 95 Room Air 04/02/17 13:02 99/65 04/02/17 13:00 106 04/02/17 12:55 36.8 107 18 99/65 95 Room Air 04/02/17 12:53 98/59 The patient is lethargic, normocephalic and atraumatic, lying in bed and in no acute distress. HEENT--PERRL, EOMI, mucous membranes and oropharynx dry. Neck--supple, no JVD or bruits, thyroid normal, trachea midline, no adenopathy. Heart--normal S1 and S2, no extra beats, no murmurs, rubs or gallops. Lungs--few coarse breath sounds bilaterally with decreased breath sounds left base, no respiratory distress, no accessory muscle use. Abdomen--normal bowel sounds and soft, nontender and nondistended, no hernias or masses, no organomegaly. Extremities--right lower extremity larger in circumference than the left, with mild pitting edema. Dermatologic--normal skin turgor, normal color, warm and dry, no abnormal lymph nodes, no rash. Neurologic--cranial nerves II through XII grossly intact, motor and sensory examination normal. Rheumatologic--normal range of motion, nontender, muscles and joints. Psychiatric--lethargic, occasionally opens eyes. And is able to eventually answer a few questions appropriately with one or 2 words. Hospital Course: 86yo male - Syncope - suspected to be from right heart strain in the setting of suspected PEs. Has been hydrated, echo is stable, no further w/u. RLE DVT - extensive - complicated by atrial thrombus and suspected PEs - transitioned to lovenox 1mg/kg q12h. - day #4 of coumadin, INR is therapeutic today, so will decrease to 2.5mg daily tonight. Pt is on chronic macrobid for UTI prophylaxis so likely that this is potentiating INR elevation. - INR 2.6 on discharge. Home health services should recheck INR starting tomorrow morning for next 5 days, and results sent to Dr. Donte Willard to follow and adjust coumadin accordingly. Instructions given to patient: Your dose of coumadin will alternate between 2.5 and 5 mg. Take 2.5 mg on -- and then 5 mg on ---. Take lovenox injection tonight, then tomorrow morning and afternoon. - Lovenox teaching provided prior to discharge. Will need administered on 04/08 Q12H and then can stop. - Etiology possible from immobility, although cannot rule out occult malignancy (has h/o left-sided renal cell ca s/p surgery) but given age and advanced dementia will not pursue w/u Myocardial demand ischemia - mildly elevated troponin likely due to acute kidney injury or right heart strain. - repeat troponin was improved HTN - uncontrolled - nicardipine 30 mg daily added on 04/05 - BP seems to be much better controlled at this point. Will continue upon discharge Dementia - noted, stable. - Resumed namenda 10 mg daily Abnormal LFTs - 2nd to right heart strain in setting of suspected PEs initially is now RESOLVED. Acute kidney injury - suspect due to VTE - resolved. BPH - continue alpha chana & finasteride. DVT ppx: as above CODE STATUS: DNR Disposition: From home, CM assisting with increasing in home nursing coverage from 12 H daily to 24/, discharge home today. Total Time Spent: Greater than 30 minutes This includes examination of the patient, discharge planning, medication reconciliation, and communication with other providers. (Tessa Dickey PA-C) Attending Discharge Note & Attestation: Pt seen/examined, chart reviewed, discharge care plan d/w KOURTNEY Dickey. I agree with the martell components of her discharge summary. 86yo male with severe dementia and significant ambulatory dysfunction leading to worsening mobility over the last 1-2 months at his home who presented with syncope. Found to have extensive RLE DVT and an atrial thrombus. It was presumed he had PEs as well. His syncope was felt to be due to the VTE event. Cause of VTE - likely immobility, but cannot exclude occult malignancy - work- up deferred in light of advanced dementia status. He was anticoagulated with heparin infusion and coumadin; heparin was ultimately stopped and transitioned over to lovenox 1mg/kg bid. INR on 04/06/17 and 04/07/17 was 2.6 each day. Other issues addressed - acute kidney injury likely 2nd to the VTE event; abnormal LFTs, likely due to right heart strain and passive congestion; and mild thrombocytopenia. A review of the EMR shows that the low platelet issue appears chronic with waxing/waning levels. This will need to be followed carefully in light of his anticoagulation usage. Platelet count at admission was in the 70s, improving to the 130s at discharge. The family has secured 23/02 private duty caregivers for his home and thus he will discharge home with his & these caregivers. Home health has been arranged for lovenox and daily INRs. He needs 24 hours more of "overlap" therapy with lovenox. Discharge exam: gen - nad, pleasantly confused neck - no JVD mouth - MMM heart - RRR, s1, s2, 2/6 systolic murmur RUSB/lSB lungs - CTA b/l abd - soft, NT ext - right calf much larger than left calf, pulses 2+ b/l neuro - vocal tic and facial tic present - baseline Rommel Mckay MD (Rommel Mckay MD) Discharge Instructions Please refer to the electronic Patient Visit Report (Discharge Instructions) for additional information. (Tessa Dickey PA-C) Follow-Up Follow up with your Primary Care Provider within 1 week. - Have INR drawn tomorrow morning with home health, then as needed per your family physician. (Tessa Dickey, PAAlmaC) Additional Copies To Donte Willard M.D.
[2017-04-07] MEDS ORDERED: BISACODYL 10 MG SUPP ONE (11:00)
[2017-04-07 14:52] VITALS: BP 136/82; PULSE 80; TEMP 36.4; O2SAT 95
[2017-04-07 15:20] VITALS: BP 136/82; PULSE 80; TEMP 36.4; O2SAT 95
[2017-04-07] MEDS ORDERED: WARFARIN SOD 5 MG TAB PO SCH (16:00)
== END 2017-04-07 17:40 | disposition home health service (06) | DRG 299 ==
LOC: EDBD 12:51 → C.EDA 12:55 → C.MED 15:05 → ENRESERV 15:36
PROVIDERS: ADMIT Hospitalist; ATTEND Internal Medicine
DX: I82.401 Acute embolism and thrombosis of unspecified deep veins of right lower extremity (principal); I26.99 Other pulmonary embolism without acute cor pulmonale; I10 Essential (primary) hypertension; Z66 Do not resuscitate; E78.00 Pure hypercholesterolemia, unspecified; N40.0 Benign prostatic hyperplasia without lower urinary tract symptoms; Z87.01 Personal history of pneumonia (recurrent); F03.90 Unspecified dementia, unspecified severity, without behavioral disturbance, psychotic disturbance, mood disturbance, and anxiety

== ENCOUNTER → 2017-05-12 | Outpatient (CLI) | payer OTHER ==
[~2017-05-12] MED LIST changes: +CMD25 PO; -DXY100 PO; -FELO10TA2 PO; +FINA5TAB PO; +LVNIS80 SQ; +NIFE1TAB13 PO; +NITR1CAP32 PO; -PRS5 PO; +TERA1CAP63 PO; -TERA5CAP PO; -ZCR80 PO
[2017-05-12 17:58] LABS: URINE APPEARANCE TURBID (CLEAR); URINE BILIRUBIN NEG (NEG); URINE COLOR DK YELLOW; URINE NITRITE POS (NEG); URINE PH 5.5 (4.5-7.5); URINE SPECIFIC GRAVITY 1.022 (1.000-1.030); UROBILINOGEN NEG (NEG)
[2017-05-12 18:07] LABS: MANUAL MICROSCOPIC REQUIRED? NO; REVIEW REQ? YES
== END | disposition home or self-care (01) ==
LOC: C.LABPVFM 12:31
PROVIDERS: ATTEND Family Medicine
DX: N39.0 Urinary tract infection, site not specified (principal)

== ENCOUNTER 2017-10-15 10:57 | Inpatient (IN) | payer OTHER ==
[~2017-10-15] VITALS: Ht 170.2 cm; Wt 71.0 kg
[~2017-10-15 10:57] MED LIST changes: +NIFE-95 PO; -NIFE1TAB13 PO
[2017-10-15] MEDS ORDERED: SODIUM CHLORIDE 0.9% 500ML 500 ML IV STA (11:39)
[2017-10-15] MEDS ORDERED: ALBUT/IPRATROP 3MG/0.5MG NEB 3 ML VIAL INH STA (11:39)
--- NOTE | 2017-10-15 12:18 | DIAGNOSTIC IMAGING REPORT ---
CHEST ONE VIEW PORTABLE CLINICAL HISTORY: CHEST PAIN dyspnea COMPARISON STUDY: 04/04/2017 FINDINGS: Parenchymal infiltrate left lung base. Lungs otherwise are clear. Diaphragms are smooth. IMPRESSION: Infiltrate left base. The above report was generated using voice recognition software. It may contain grammatical, syntax or spelling errors. Electronically signed by: Steven Dia M.D. 10/15/2017 12:17 PM Dictated Date/Time: 10/15/2017 12:17 PM
[2017-10-15 12:45] LABS: INFLUENZA B ANTIGEN Neg for Influ B (NEG)
[2017-10-15 12:59] LABS: BASO % 0.1 %; BASO ABS # 0.01 K/uL (0-0.2); EOS % 0.3 %; EOS ABS # 0.03 K/uL (0-0.5); HEMATOCRIT 50.7 % (42-52); HEMOGLOBIN 17.5 g/dL (14.0-18.0); IG# 0.03 K/uL (0.00-0.02); LYMPH % 7.4 %; LYMPH ABS # 0.87 K/uL (1.2-3.4); MEAN CELL VOLUME 89.9 fL (80-100); MEAN CORPUSCULAR HGB CONC 34.5 g/dl (32-36); MEAN PLATELET VOLUME 10.4 fL (7.4-10.4); MONO % 6.8 %; NEUT % 85.1 %; NEUT ABS # 10.06 K/uL (1.4-6.5); PLATELET COUNT 231 K/uL (130-400); RED CELL DISTRIBUTION WIDTH CV 14.3 % (11.5-14.5); RED CELL DISTRIBUTION WIDTH SD 47.2 fL (36.4-46.3)
[2017-10-15 13:15] LABS: ALT/SGPT 29 U/L (12-78); BLOOD UREA NITROGEN 23 mg/dl (7-18); CALCIUM 9.4 mg/dl (8.5-10.1); CARBON DIOXIDE 29 mmol/L (21-32); CREATININE 1.16 mg/dl (0.60-1.40); GLUCOSE 135 mg/dl (70-99); LIPASE 203 U/L (73-393); POTASSIUM 3.9 mmol/L (3.5-5.1); SODIUM 142 mmol/L (136-145)
[2017-10-15 13:19] LABS: ALKALINE PHOSPHATASE 116 U/L (45-117); AST/SGOT 28 U/L (15-37)
[2017-10-15] MEDS ORDERED: PIPERACILLIN/TAZOBACTAM 4.5 GM/100ML D5W IV STA (13:24)
[2017-10-15] MEDS ORDERED: VANCOMYCIN IV 1,400 MG in SODIUM CHLORIDE 0.9% 500ML 500 ML IV STA (13:24)
[2017-10-15] MEDS ORDERED: NMN10 PO (13:25)
[2017-10-15] MEDS ORDERED: CHOL1000 PO (13:25)
[2017-10-15] MEDS ORDERED: RIVA1TAB4 PO (13:25)
[2017-10-15] MEDS ORDERED: VANCOMYCIN CONSULT ACTIVE PRN (13:30)
--- NOTE | 2017-10-15 14:04 | EMERGENCY ROOM VISIT NOTE ---
History Report prepared by Mark: Flora Wilson Under the Supervision of: Dr. Don Eason M.D. First contact with patient: 11:33 Chief Complaint: ILLNESS Stated Complaint: SHORTNESS OF BREATH History of Present Illness The patient is an 87 year old male who presents to the Emergency Room with complaints of persistent crackles in his lungs starting this morning. The patient has a history of dementia for 3 years. The patient's family states that this morning his caregiver noticed some crackles in his lungs. His blood pressure this morning was 143/103 which is higher than normal. He did not have any crackles in his lungs yesterday and has been doing well. He appears to be at baseline otherwise. The patient currently has bedsores. He is unable to walk without assistance. He is incontinent at baseline. He has not had any chills or fever recently. The patient has been choking on water and is scheduled for a swallow study. The patient is on Xarelto for a history of blood clots. He lives with his . The history is limited secondary to the patient's dementia. Source of History: family History Limited By: dementia Onset: this morning Position: other (lungs) Quality: other (crackles) Timing: other (persistent) Associated Symptoms: No fevers, No chills Note: Pt has high blood pressure. Review of Systems Limited secondary to patient's dementia. Past Medical & Surgical Medical Problems: (1) Acute deep vein thrombosis (DVT) of right lower extremity (2) Acute prostatitis (3) Altered mental status (4) Bilateral pneumonia (5) BPH (benign prostatic hyperplasia) (6) Dementia (7) Fever (8) HTN (hypertension) (9) Hypercholesterolemia (10) Left lower lobe pneumonia (11) Right lower lobe pneumonia Family History Patient reports no known family medical history. Noncontributory secondary to age. Social History Smoking Status: Unknown if Ever Smoked Drug Use: none Marital Status: Housing Status: lives with significant other Occupation Status: retired Current/Historical Medications Scheduled Cholecalciferol (Vitamin D3), 0 PO QAM Finasteride (Proscar), 1 TAB PO HS Memantine (Namenda), 10 MG PO HS Rivaroxaban (Xarelto), 20 MG PO HS Allergies Coded Allergies: No Known Allergies (Verified , 10/15/17) Physical Exam Vital Signs Date Time Temp Pulse Resp B/P (MAP) Pulse Ox O2 Delivery O2 Flow Rate FiO2 10/15/17 14:25 117 32 126/85 91 Room Air 10/15/17 12:42 109 32 146/85 91 Room Air 10/15/17 11:20 112 10/15/17 11:13 36.3 116 32 139/96 91 Room Air 10/15/17 11:12 92 Room Air Physical Exam GENERAL: Demented, nonverbal at baseline, in no acute distress HENT: Normocephalic, atraumatic. Dry cracked mucous membranes. EYES: Normal conjunctiva. Sclera non-icteric. NECK: Supple. No nuchal rigidity. FROM. No JVD. RESPIRATORY: Scattered wheezes and rhonchi throughout. CARDIAC:ST. Extremities warm and well perfused. Pulses equal. ABDOMEN: Soft, non-distended. No tenderness to palpation. No rebound or guarding. No masses. RECTAL: Deferred. MUSCULOSKELETAL: Chest examination reveals no tenderness. The back is symmetrical on inspection without obvious abnormality. There is no CVA tenderness to palpation. No joint edema. LOWER EXTREMITIES: Calves are equal size bilaterally and non-tender. No edema. No discoloration. NEURO: Normal sensorium. No sensory or motor deficits noted. SKIN: No rash or jaundice noted. Medical Decision & Procedures ER Provider Diagnostic Interpretation: Radiology results as stated below per my review and radiologist interpretation: CHEST ONE VIEW PORTABLE CLINICAL HISTORY: CHEST PAIN dyspnea COMPARISON STUDY: 04/04/2017 FINDINGS: Parenchymal infiltrate left lung base. Lungs otherwise are clear. Diaphragms are smooth. IMPRESSION: Infiltrate left base. The above report was generated using voice recognition software. It may contain grammatical, syntax or spelling errors. Electronically signed by: Steven Dia M.D. 10/15/2017 12:17 PM Dictated Date/Time: 10/15/2017 12:17 PM Laboratory Results 10/15/17 12:49 Red Blood Count 5.64, Mean Corpuscular Volume 89.9, Mean Corpuscular Hemoglobin 31.0, Mean Corpuscular Hemoglobin Concent 34.5, Mean Platelet Volume 10.4, Neutrophils (%) (Auto) 85.1, Lymphocytes (%) (Auto) 7.4, Monocytes (%) (Auto) 6.8, Eosinophils (%) (Auto) 0.3, Basophils (%) (Auto) 0.1, Neutrophils # (Auto) 10.06, Lymphocytes # (Auto) 0.87, Monocytes # (Auto) 0.80, Eosinophils # (Auto) 0.03, Basophils # (Auto) 0.01 10/15/17 12:49 Test 10/15/17 11:50 10/15/17 12:40 10/15/17 12:49 10/15/17 14:14 Influenza Type A Antigen Neg for Influ A (NEG) Influenza Type B Antigen Neg for Influ B (NEG) Urine Color ORANGE Urine Appearance TURBID (CLEAR) Urine pH 5.0 (4.5-7.5) Urine Specific [place] 1.020 (1.000-1.030) Urine Protein TRACE (NEG) Urine Glucose (UA) NEG (NEG) Urine Ketones NEG (NEG) Urine Occult Blood 3+ (NEG) Urine Nitrite POS (NEG) Urine Bilirubin NEG (NEG) Urine Urobilinogen NEG (NEG) Urine Leukocyte Esterase LARGE (NEG) Urine WBC (Auto) >30 /hpf (0-5) Urine RBC (Auto) 10-30 /hpf (0-4) Urine Hyaline Casts (Auto) 1-5 /lpf (0-5) Urine Epithelial Cells (Auto) 10-20 /lpf (0-5) Urine Bacteria (Auto) 4+ (NEG) Urine Yeast (Auto) (NONE PRSENT) White Blood Count 11.80 K/uL (4.8-10.8) Red Blood Count 5.64 M/uL (4.7-6.1) Hemoglobin 17.5 g/dL (14.0-18.0) Hematocrit 50.7 % (42-52) Mean Corpuscular Volume 89.9 fL (80-100) Mean Corpuscular Hemoglobin 31.0 pg (25-34) Mean Corpuscular Hemoglobin Concent 34.5 g/dl (32-36) Platelet Count 231 K/uL (130-400) Mean Platelet Volume 10.4 fL (7.4-10.4) Neutrophils (%) (Auto) 85.1 % Lymphocytes (%) (Auto) 7.4 % Monocytes (%) (Auto) 6.8 % Eosinophils (%) (Auto) 0.3 % Basophils (%) (Auto) 0.1 % Neutrophils # (Auto) 10.06 K/uL (1.4-6.5) Lymphocytes # (Auto) 0.87 K/uL (1.2-3.4) Monocytes # (Auto) 0.80 K/uL (0.11-0.59) Eosinophils # (Auto) 0.03 K/uL (0-0.5) Basophils # (Auto) 0.01 K/uL (0-0.2) RDW Standard Deviation 47.2 fL (36.4-46.3) RDW Coefficient of Variation 14.3 % (11.5-14.5) Immature Granulocyte % (Auto) 0.3 % Immature Granulocyte # (Auto) 0.03 K/uL (0.00-0.02) Anion Gap 7.0 mmol/L (3-11) Estimated GFR () 65.7 Estimated GFR (Non- 56.7 BUN/Creatinine Ratio 19.9 (10-20) Calcium Level 9.4 mg/dl (8.5-10.1) Total Bilirubin 1.8 mg/dl (0.2-1) Direct Bilirubin 0.6 mg/dl (0-0.2) Aspartate Amino Transf (AST/SGOT) 28 U/L (15-37) Alanine Aminotransferase (ALT/SGPT) 29 U/L (12-78) Alkaline Phosphatase 116 U/L (45-117) Troponin I < 0.015 ng/ml (0-0.045) Pro-B-Type Natriuretic Peptide 571 pg/ml (0-1800) Total Protein 7.0 gm/dl (6.4-8.2) Albumin 3.0 gm/dl (3.4-5.0) Lipase 203 U/L (73-393) Lactic Acid Level 3.0 mmol/L (0.4-2.0) Laboratory results reviewed by me Medications Administered Medications (Trade) Dose Ordered Sig/[place] Route Start Time Stop Time Status Last Admin Dose Admin Sodium Chloride 500 ml @ 999 mls/hr Q31M STAT IV 10/15/17 11:39 10/15/17 12:09 DC 10/15/17 12:23 999 MLS/HR Albuterol/ Ipratropium (Duoneb) 3 ml NOW STAT INH 10/15/17 11:39 10/15/17 11:45 DC 10/15/17 12:23 3 ML Vancomycin HCl 1400 mg/Sodium Chloride 528 ml @ 200 mls/hr ONE STAT IV 10/15/17 13:24 10/15/17 16:07 DC 10/15/17 15:14 200 MLS/HR Piperacillin Sod/ Tazobactam Sod (Zosyn Iv) 4.5 gm NOW STAT IV 10/15/17 13:24 10/15/17 13:27 DC 10/15/17 14:21 4.5 GM ECG Per My Interpretation Indication: SOB/dyspnea Rate (beats per minute): 105 Rhythm: sinus tachycardia Findings: no acute ischemic change, other (normal axis) ED Course 1134: The patient was evaluated in room B8. A complete history and physical exam was performed. 1321: Upon reexamination, the patient was stable. I discussed the test results and treatment plan with his family. The patient will be evaluated for further management. 1327: I discussed the patient with ELIAN Esteban hospitalist - She will evaluate the patient for further treatment. Medical Decision I reviewed the patient's past medical history, medications, and the nursing notes as described above. Differential diagnosis: Etiologies such as aspiration, infections, reactive airway disease, pneumonia, pneumothorax, COPD, CHF, cardiac ischemia, pulmonary embolism, musculoskeletal, gastrointestinal, as well as others were entertained. The patient is an 87-year-old gentleman with a past medical history of severe dementia predominately bedbound at home who presents emergency department with worsening shortness of breath and crackles which concerned the home nurse per hpi. On arrival patient is pleasantly demented nonverbal at baseline, no acute distress, afebrile, heart rate in the 100s but vital signs otherwise stable. On exam, the patient has diffuse wheezes and rhonchi. Patient appears clinically dry. Chest x-ray with left basal infiltrate. UA grossly positive with positive nitrites. WBC 11.8, T bili 1.8 consistent with the patient's dehydration. I discussed the goals of care with the family given that the patient has a living will then declines invasive treatments as well as antibiotics that would not improve his baseline functional status. Case management also assisting and discussing goals of care with the family. Subsequently the family is agreeable for admission and antibiotics at this time. Given the patient's leukocytosis, tachycardia as well as to likely sources will treat empirically for sepsis at this time. Case was discussed with ESPERANZA Esteban hospitalist to admit the patient for further management. Medication Reconcilliation Current Medication List: was personally reviewed by me Blood Pressure Screening Patient's blood pressure: Elevated blood pressure Referred to hospitalist. Consults Time Called: 1320 Consulting Physician: ESPERANZA Esteban hospitalist Returned Call: 1327 I discussed the patient with her - She will evaluate the patient for further treatment. Impression Primary Impression: Sepsis Additional Impressions: Pneumonia UTI (urinary tract infection) Critical Care I have personally spent greater than 35 minutes of critical care time in the direct management of this patient. This includes bedside care, interpretation of diagnostic studies, and testing, discussion with consultants, patient, and family members, and other required patient management activities. This 35 minutes is in excess of all separately billable procedures. Scribe Attestation The scribe's documentation has been prepared under my direction and personally reviewed by me in its entirety. I confirm that the note above accurately reflects all work, treatment, procedures, and medical decision making performed by me. Departure Information Dispostion Being Evaluated By Hospitalist Referrals Donte Willard M.D. (PCP) Patient Instructions [facility] Problem Qualifiers
[2017-10-15] MEDS ORDERED: ONDANSETRON INJ 2 MG/ML 2 ML VIAL IV PRN (14:30)
[2017-10-15] MEDS ORDERED: ACETAMINOPHEN 325 MG TAB PO PRN (14:30)
[2017-10-15] MEDS ORDERED: MAGNESIUM HYDROXIDE SUSP 30 ML UDC PO PRN (14:30)
--- NOTE | 2017-10-15 14:52 | History and Physical ---
History & Physical Date & Time of Service: Oct 15, 2017 at 14:28 Chief Complaint: Shortness Of Breath Primary Care Physician: Wendie Parker M.D. History of Present Illness Source: family 87 y/o M who was brought to the ED by his family after his private duty nursing noted that pt had crackles on lung exam during a routine exam. His BP was also 143/103 which is elevated for him (reported baseline of 120s/70s). Pt was seen yesterday and it has been reported that his lung sounds were normal at that time. Daughter is present and states that pt is non-verbal at baseline due to advanced dementia, so he has not expressed any concerns or complaints. She states his is mildly agitated now, but this is typically the case when out of his home. She states that prior to coming here, he was behaving at his usual. He has been eating well and all reports from private duty nursing suggest he eats most of his food. He has been constipated recently, but did have a bowel movement yesterday. He has not been reported to have diarrhea. He does wear Depends but no bernal use. Wound Care has been active with pt for pressure ulcers. Pt itches them frequently and this has made the ulcers worse. Daughter states that pt has been having choking/coughing with water. He does not have issues with pudding or ice cream or other solids. 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 Social History Smoking Status: Never Smoker Alcohol Use: none Drug Use: none Marital Status: Housing status: lives with family Occupational Status: retired Immunizations History of Influenza Vaccine: N/A History of Tetanus Vaccine?: No History of Pneumococcal: No History of Hepatitis B Vaccine: No Allergies Coded Allergies: No Known Allergies (Verified , 10/15/17) Home Medications Scheduled Cholecalciferol (Vitamin D3), 0 PO QAM Finasteride (Proscar), 1 TAB PO HS Memantine (Namenda), 10 MG PO HS Rivaroxaban (Xarelto), 20 MG PO HS Physical Exam Vital Signs Date Time Temp Pulse Resp B/P (MAP) Pulse Ox O2 Delivery O2 Flow Rate FiO2 10/15/17 14:25 125 32 126/85 Room Air 10/15/17 12:42 109 32 146/85 91 Room Air 10/15/17 11:20 112 10/15/17 11:13 36.3 116 32 139/96 91 Room Air 10/15/17 11:12 92 Room Air General Appearance: WD/WN, no apparent distress Head: normocephalic, atraumatic Eyes: normal inspection, sclerae normal Respiratory/Chest: no respiratory distress, + crackles (L sided) Cardiovascular: regular rate, rhythm, no edema, normal peripheral pulses Abdomen/GI: non tender, soft Extremities/Musculoskelatal: no calf tenderness, no pedal edema Neurologic/Psych: alert, + pertinent finding (does not speak, pulling at wires , looks at me when I speak with him but no smile or other social cues and does not respond to any questions or basic commands. Moving all extremities) Skin: normal color, warm/dry Diagnostics Laboratory Results Results Past 24 Hours Test 10/15/17 11:50 10/15/17 12:40 10/15/17 12:49 10/15/17 14:14 Range/Units Influenza Type A Antigen Neg for Influ A NEG Influenza Type B Antigen Neg for Influ B NEG Urine Color ORANGE Urine Appearance TURBID CLEAR Urine pH 5.0 4.5-7.5 Urine Specific [place] 1.020 1.000-1.030 Urine Protein TRACE NEG Urine Glucose (UA) NEG NEG Urine Ketones NEG NEG Urine Occult Blood 3+ NEG Urine Nitrite POS NEG Urine Bilirubin NEG NEG Urine Urobilinogen NEG NEG Urine Leukocyte Esterase LARGE NEG Urine WBC (Auto) >30 0-5 /hpf Urine RBC (Auto) 10-30 0-4 /hpf Urine Hyaline Casts (Auto) 1-5 0-5 /lpf Urine Epithelial Cells (Auto) 10-20 0-5 /lpf Urine Bacteria (Auto) 4+ NEG Urine Yeast (Auto) NONE PRSENT White Blood Count 11.80 4.8-10.8 K/uL Red Blood Count 5.64 4.7-6.1 M/uL Hemoglobin 17.5 14.0-18.0 g/dL Hematocrit 50.7 42-52 % Mean Corpuscular Volume 89.9 80-100 fL Mean Corpuscular Hemoglobin 31.0 25-34 pg Mean Corpuscular Hemoglobin Concent 34.5 32-36 g/dl Platelet Count 231 130-400 K/uL Mean Platelet Volume 10.4 7.4-10.4 fL Neutrophils (%) (Auto) 85.1 % Lymphocytes (%) (Auto) 7.4 % Monocytes (%) (Auto) 6.8 % Eosinophils (%) (Auto) 0.3 % Basophils (%) (Auto) 0.1 % Neutrophils # (Auto) 10.06 1.4-6.5 K/uL Lymphocytes # (Auto) 0.87 1.2-3.4 K/uL Monocytes # (Auto) 0.80 0.11-0.59 K/uL Eosinophils # (Auto) 0.03 0-0.5 K/uL Basophils # (Auto) 0.01 0-0.2 K/uL RDW Standard Deviation 47.2 36.4-46.3 fL RDW Coefficient of Variation 14.3 11.5-14.5 % Immature Granulocyte % (Auto) 0.3 % Immature Granulocyte # (Auto) 0.03 0.00-0.02 K/uL Sodium Level 142 136-145 mmol/L Potassium Level 3.9 3.5-5.1 mmol/L Chloride Level 106 98-107 mmol/L Carbon Dioxide Level 29 21-32 mmol/L Anion Gap 7.0 3-11 mmol/L Blood Urea Nitrogen 23 7-18 mg/dl Creatinine 1.16 0.60-1.40 mg/dl Estimated GFR () 65.7 Estimated GFR (Non- 56.7 BUN/Creatinine Ratio 19.9 10-20 Random Glucose 135 70-99 mg/dl Calcium Level 9.4 8.5-10.1 mg/dl Total Bilirubin 1.8 0.2-1 mg/dl Direct Bilirubin 0.6 0-0.2 mg/dl Aspartate Amino Transf (AST/SGOT) 28 15-37 U/L Alanine Aminotransferase (ALT/SGPT) 29 12-78 U/L Alkaline Phosphatase 116 45-117 U/L Troponin I < 0.015 0-0.045 ng/ml Pro-B-Type Natriuretic Peptide 571 0-1800 pg/ml Total Protein 7.0 6.4-8.2 gm/dl Albumin 3.0 3.4-5.0 gm/dl Lipase 203 73-393 U/L Microbiology Results 10/15/17 Blood Culture, Received Pending 10/15/17 Blood Culture, Received Pending 10/15/17 Urine Culture, Received Pending Diagnostic Radiology CXR: L base PNA Impression Assessment and Plan 87 y/o F who was admitted on 10/15 for PNA and UTI PNA/UTI: Concern for possible aspiration CXR and UA noted Blood and urine cx pending Afebrile with elevated WBC Sats are WNL on RA Started on vanco/zosyn in the ED, will change to levaquin as this will cover for asp PNA and UTI Trop and BNP WNL BP/HR stable Flu neg Speech c/s pending Pressure ulcers: active with wound care as outpt [facility] pending Hx of DVT/PE: continue xarelto Dementia: continue home meds One to one sitter HTN/Hyperlipidemia: medications for this have been stopped per family Other: DNR/DNI, living will suggests no feeding tubes or other interventions. Also suggests no abx, however family states that abx are fine as pt is stable at this time Xarelto for DVT proph Reg diet, no thin liquids until speech eval Advanced Directives Existing Advance Directive: Yes Resuscitation Status VTE Prophylaxis Will order VTE Prophylaxis: No Reason for no VTE drug order: Treatment not indicated (on xarelto) Reason no Mechanical VTE Order: Treatment not tolerated (has skin break down in multiple regions and is on xarelto)
[2017-10-15 15:22] VITALS: Ht 170.2 cm; Wt 71.0 kg
[2017-10-15] MEDS ORDERED: LEVOFLOXACIN / D5W 750 MG in PREMIXED IN D5W 150 ML IV SCH (16:00)
[2017-10-15 16:25] VITALS: BP 119/85; PULSE 89; TEMP 36.4; O2SAT 95
[2017-10-15] MEDS: RIVAROXABAN 10 MG TAB PO SCH (22:43)
[2017-10-15] MEDS: MEMANTINE 10 MG TAB PO SCH (22:44)
[2017-10-15] MEDS: FINASTERIDE 5 MG TAB PO SCH (22:44)
[2017-10-15 22:56] VITALS: BP 123/75; PULSE 122; TEMP 37.1; O2SAT 93
[2017-10-16 08:17] LABS: HEMOGLOBIN 16.1 g/dL (14.0-18.0); MEAN CELL VOLUME 89.2 fL (80-100); MEAN CORPUSCULAR HEMOGLOBIN 30.6 pg (25-34); MEAN CORPUSCULAR HGB CONC 34.3 g/dl (32-36); MEAN PLATELET VOLUME 10.3 fL (7.4-10.4); PLATELET COUNT 220 K/uL (130-400); RED CELL DISTRIBUTION WIDTH CV 14.5 % (11.5-14.5); RED CELL DISTRIBUTION WIDTH SD 47.1 fL (36.4-46.3)
[2017-10-16] MEDS: CHOLECALCIFEROL 1000 INTER.UNIT TAB PO SCH (09:07)
[2017-10-16] MEDS ORDERED: PIPERACILL/TAZOBAC CONSULT ACTIVE PRN (13:15)
[2017-10-16] MEDS ORDERED: PIPERACILL/TAZOBAC IV 3.375 GM in DEXTROSE 5% 100ML IV ONE (13:30)
[2017-10-16] MEDS ORDERED: PIPERACILL/TAZOBAC IV 3.375 GM in DEXTROSE 5% 100ML 100 ML IV SCH (14:00)
[2017-10-16 15:23] VITALS: BP 125/79; PULSE 103; TEMP 36.6; O2SAT 91
--- NOTE | 2017-10-16 17:42 | Hospitalist Progress Note ---
Hospitalist Progress Note Date of Service Oct 16, 2017. (Alissa Blood, SULLY) Subjective Pt evaluation today including: conversation w/ patient, conversation w/ family , physical exam, chart review, lab review, review of studies, review of inpatient medication list Patient seen and evaluated. Discussed with family at bedside and with GAIL Aldrich over the phone. Patient has been seen aspirating on thin liquids and did prior to presentation to the hospital. Family states he is supposed to have thickened liquids. Explained that is appears he is experiencing an aspiration pneumonia/ pneumonitis and we are covering him with antibiotics. On time of visit, I did not get a chance to review FACE BOSS recommendations. Frankly discussed with the family that we can try and manipulate his diet to prevent aspiration but sometimes this is at the cost of reduced intake due to the thickened liquids. Bridged the topic that this may be a constant issue and a decision may need to be made about comfort feedings with the knowledge that he will aspirate. Family was very receptive to this discussion but his was holding back tears. Did explain he looks well now but due to his significant dementia and lethargy his oral intake will likely reduce and when he does eat/drink it may continue to go into the lungs. Discussed that palliative care may be the most appropriate route. They ask that I speak to the GAIL Aldrich who is very aware on the current situation. States she is looking to transition him to Hospice possibly at [facility]. She would like a palliative care consultation to help assist with planning and coordination. Did discuss that we will continue to actively treat his presenting conditions but it would be beneficial to discuss goals of care, especially if Hospice is the plan, as this will focus on keeping him comfortable. Also expressed that he is only eating about 25% of his meals. Explained that this is not an uncommon thing and a lot of times patient's lose their hunger feelings. Of course, poor oral intake will ultimately lead to further decline. Additional Comments: ROS deferred as patient is non-verbal. (Alissa Blood, NEERAJC) Medications Current Inpatient Medications Medications (Trade) Dose Ordered Sig/[place] Route Start Time Stop Time Status Last Admin Dose Admin Acetaminophen (Tylenol Tab) 650 mg Q4H PRN PO 10/15/17 14:30 11/14/17 14:29 Magnesium Hydroxide (Milk Of Magnesia Susp) 30 ml Q6H PRN PO 10/15/17 14:30 11/14/17 14:29 Ondansetron HCl (Zofran Inj) 4 mg Q6H PRN IV 10/15/17 14:30 11/14/17 14:29 Cholecalciferol (Vitamin D Tab) 1,000 inter.unit QAM PO 10/16/17 09:00 11/15/17 08:59 10/16/17 09:07 1,000 INTER.UNIT Finasteride (Proscar Tab) 5 mg HS PO 10/15/17 21:00 11/14/17 20:59 10/15/17 22:44 5 MG Memantine (Namenda Tab) 10 mg HS PO 10/15/17 21:00 11/14/17 20:59 10/15/17 22:44 10 MG Rivaroxaban (Xarelto Tab) 20 mg HS PO 10/15/17 21:00 11/14/17 20:59 10/15/17 22:43 20 MG Miscellaneous Information (Consult) 1 ea UD PRN N/A 10/16/17 13:15 11/15/17 13:14 Piperacillin Sod/ Tazobactam Sod 3.375 gm/Dextrose 115 ml @ 28.75 mls/ hr Q8H IV 10/16/17 18:00 10/23/17 17:59 10/16/17 17:57 28.75 MLS/HR Enteral Nutritional Formula (Boost) 1 can BID PO 10/16/17 21:00 11/15/17 20:59 (Alissa Blood, PA-C) Objective Vital Signs Date Time Temp Pulse Resp B/P (MAP) Pulse Ox O2 Delivery O2 Flow Rate FiO2 10/16/17 15:23 36.6 103 18 125/79 (94) 91 10/16/17 08:00 Room Air 10/16/17 00:01 Room Air 10/15/17 22:56 37.1 122 20 123/75 (91) 93 Room Air 10/15/17 20:01 Room Air (Alissa Blood PA-C) Physical Exam General Appearance: no apparent distress, + thin Eyes: sclerae normal Neck: supple, no JVD, trachea midline Respiratory/Chest: lungs clear, normal breath sounds, no respiratory distress, no accessory muscle use Cardiovascular: regular rate, rhythm, no gallop, no murmur Abdomen: normal bowel sounds, non tender, soft Extremities: no pedal edema Neurologic/Psychiatric: alert, + pertinent finding (will look at you when speaking for only short time; does not follow commands and does not speak) Skin: normal color, + pertinent finding (multiple areas of skin breakdown) (Alissa Blood PA-C) Laboratory Results Last 24 Hours Test 10/16/17 08:08 White Blood Count 12.60 K/uL Red Blood Count 5.27 M/uL Hemoglobin 16.1 g/dL Hematocrit 47.0 % Mean Corpuscular Volume 89.2 fL Mean Corpuscular Hemoglobin 30.6 pg Mean Corpuscular Hemoglobin Concent 34.3 g/dl RDW Standard Deviation 47.1 fL RDW Coefficient of Variation 14.5 % Platelet Count 220 K/uL Mean Platelet Volume 10.3 fL Lactic Acid Level 1.4 mmol/L (Alissa Blood PA-C) Assessment and Plan 87 y/o F who was admitted on 10/15 for PNA and UTI Sepsis from Aspiration Pneumonia and E. coli UTI: - Will continue with Zosyn to cover for aspiration pneumonia; await urine sensitivities - FACE BOSS evaluations - appreciate assistance with dietary adjustments -- [place] thick liquids and can utilize Honey thick if findings of aspiration ; appears to pocket food or not follow through with thorough mastication Pressure Ulcers: - Wound care following - dressing and ointments/creams applied; reposition Q2H H/O DVT/PE: Xarelto 20 mg HS Severe Dementia: - Continue 1:1 when family not at bedside HTN/HLD: Stopped per family Code Status: DO NOT RESUSCITATE Dementia: continue home meds One to one sitter Disposition: - Lengthy discussion with family at bedside and then with POA over the phone - would like a palliative care consultation to assist with transition to Hospice and possible to [facility] permanently - Will need to further discuss D/Cing on further medications per POAs recommendations - If Hospice is the ultimate choice then patient would be optimal for D/C pending these arrangements; however if the plan is to continue to actively treat at least this episode of aspiration would suspect he will be admitted through the weekend Prolonged time of 40 minutes. This includes chart review, patient assessment, family discussion, POA discussion over the phone, and coordination of care for safe disposition. Continued [facility] stay due to: multiple IV medications needed Discharge planning: home with Hospice (Alissa Blood, PAAlmaC) Attending progress note pt seen and examed, d/w PA about martell points of dignosis and care plan, agreed current management, for details please referral to PA's note S: Nonverbal, moves bilateral upper extremities, no acute distress, review of systems unable to obtain because nonverbal Patient is afebrile O: VS reviewed, stable, NAD, thin and frail Lungs: decreased breathing sound, no respiratory distress, no accessory muscle use Cardiovascular: regular rate, rhythm, no edema, normal peripheral pulses Abdomen / GI: normal bowel sounds, non tender, soft Extremities: no calf tenderness, no pedal edema Neurologic/Psychiatric: alert, normal mood/affect, no facial droop, moves upper extremities labs, images reviewed , see PA's note A/P: 87 y/o M with PNA/UTI: Pressure ulcers: Hx of DVT/PE: Dementia: HTN/Hyperlipidemia: medications for this have been stopped per family Continue current care, follow a speech evaluation for possible aspiration, UA shows E. coli UTI, will follow a sensitivity and narrow antibiotic soon, PTOT ordered, will need to contact family (Ubaldo Boston MD, PhD)
[2017-10-16] MEDS: PIPERACILL/TAZOBAC IV 3.375 GM in DEXTROSE 5% 100ML IV SCH (17:57)
[2017-10-16] MEDS: BOOST VANILLA PO SCH (21:00)
[2017-10-16] MEDS: FINASTERIDE 5 MG TAB PO SCH (21:25)
[2017-10-16] MEDS: MEMANTINE 10 MG TAB PO SCH (21:26)
[2017-10-16] MEDS: RIVAROXABAN 10 MG TAB PO SCH (21:26)
[2017-10-17 00:17] VITALS: BP 132/79; PULSE 96; TEMP 36.8; O2SAT 92
[2017-10-17] MEDS: PIPERACILL/TAZOBAC IV 3.375 GM in DEXTROSE 5% 100ML IV SCH (02:19)
[2017-10-17 07:43] LABS: HEMATOCRIT 49.8 % (42-52); HEMOGLOBIN 16.8 g/dL (14.0-18.0); MEAN CELL VOLUME 90.2 fL (80-100); MEAN CORPUSCULAR HEMOGLOBIN 30.4 pg (25-34); MEAN CORPUSCULAR HGB CONC 33.7 g/dl (32-36); MEAN PLATELET VOLUME 10.4 fL (7.4-10.4); PLATELET COUNT 231 K/uL (130-400); RED CELL DISTRIBUTION WIDTH CV 14.6 % (11.5-14.5); RED CELL DISTRIBUTION WIDTH SD 48.7 fL (36.4-46.3); WHITE BLOOD COUNT 9.84 K/uL (4.8-10.8)
[2017-10-17 08:00] VITALS: BP_SYST 172; BP_DIAS 101; BP_DIAS 122; PULSE 110; TEMP 36.3; O2SAT 88; O2SAT 93
[2017-10-17 08:04] LABS: CALCIUM 9.6 mg/dl (8.5-10.1); CREATININE 1.11 mg/dl (0.60-1.40); POTASSIUM 3.9 mmol/L (3.5-5.1)
[2017-10-17] MEDS: CHOLECALCIFEROL 1000 INTER.UNIT TAB PO SCH (08:48)
[2017-10-17] MEDS: BOOST VANILLA PO SCH (08:48)
[2017-10-17 09:38] VITALS: BP 155/88; O2SAT 93
[2017-10-17] MEDS ORDERED: LEVOFLOXACIN 750 MG TAB PO SCH (11:00)
[2017-10-17] MEDS ORDERED: NURSING VERBAL MED ORDER ONE (11:00)
[2017-10-17 11:15] VITALS: PULSE 95; O2SAT 90
[2017-10-17] MEDS ORDERED: ALBUT/IPRATROP 3MG/0.5MG NEB 3 ML VIAL INH PRN (11:15)
[2017-10-17] MEDS ORDERED: LORAZEPAM 2 MG/ML 1 ML VIAL ONE (12:15)
[2017-10-17] MEDS ORDERED: MoRPHine SULFATE 5 MG/0.25 ML UDP PO PRN (12:15)
[2017-10-17] MEDS ORDERED: LORAZEPAM INJ 0.5 MG in SYRINGE 0.75 ML IV PRN (12:15)
--- NOTE | 2017-10-17 12:17 | Progress Note ---
Subjective Date of Service: Oct 17, 2017. Subjective Pt evaluation today including: conversation w/ patient, conversation w/ family , physical exam, chart review, lab review, review of studies, review of inpatient medication list Seeing patient one half hour ago, he was nonverbal, obvious labored breathing compared to yesterday, up to 26/min, there was oral secretions and wheezing, asked nursing staff to give breathing treatment and oral care, 1 hour later rechecked patient, he is getting more confused unresponsive, some agonal breathing, a lot of oral secretions, Problem List Medical Problems: (1) MCKAYLA (acute kidney injury) Status: Acute (2) Elevated troponin Status: Acute (3) Pneumonia Status: Acute (4) Pneumonia Status: Acute (5) Pulmonary emboli Status: Acute (6) Pulmonary infiltrate in left lung on chest x-ray Status: Acute (7) Right atrial thrombus Status: Acute (8) Right leg DVT Status: Acute (9) Sepsis Status: Acute (10) Syncope Status: Acute (11) UTI (urinary tract infection) Status: Acute Review of Systems Constitutional: + problem reported (Not able to obtain because patient unresponsive) Objective Vital Signs Date Time Temp Pulse Resp B/P (MAP) Pulse Ox O2 Delivery O2 Flow Rate FiO2 10/17/17 11:15 95 18 90 Nasal Cannula 3.0 10/17/17 09:38 155/88 (110) 93 Nasal Cannula 3.0 10/17/17 08:00 93 Nasal Cannula 3.0 10/17/17 08:00 36.3 110 22 172/101 (124) 88 Room Air 172/122 (139) 10/17/17 00:17 36.8 96 20 132/79 (96) 92 Room Air 10/17/17 00:00 Room Air 10/16/17 20:00 Room Air 10/16/17 16:00 Room Air 10/16/17 15:23 36.6 103 18 125/79 (94) 91 Physical Exam General Appearance: + moderate distress, + cachetic, + thin, + pertinent finding (Frail,) Eyes: PERRL ENT: normal ENT inspection Neck: supple Respiratory/Chest: + decreased breath sounds, + accessory muscle use, + rhonchi , + wheezing Cardiovascular: regular rate, rhythm, no edema Abdomen: normal bowel sounds, non tender, soft Extremities: + pertinent finding (Cold, ) Neurologic/Psychiatric: + pertinent finding (No facial droop, nonverbal, unresponsive) Skin: + mottled Laboratory Results Last 24 Hours Test 10/17/17 07:06 White Blood Count 9.84 K/uL Red Blood Count 5.52 M/uL Hemoglobin 16.8 g/dL Hematocrit 49.8 % Mean Corpuscular Volume 90.2 fL Mean Corpuscular Hemoglobin 30.4 pg Mean Corpuscular Hemoglobin Concent 33.7 g/dl RDW Standard Deviation 48.7 fL RDW Coefficient of Variation 14.6 % Platelet Count 231 K/uL Mean Platelet Volume 10.4 fL Sodium Level 143 mmol/L Potassium Level 3.9 mmol/L Chloride Level 109 mmol/L Carbon Dioxide Level 29 mmol/L Anion Gap 6.0 mmol/L Blood Urea Nitrogen 21 mg/dl Creatinine 1.11 mg/dl Est Creatinine Clear Calc Drug Dose 44.7 ml/min Estimated GFR () 69.3 Estimated GFR (Non- 59.8 BUN/Creatinine Ratio 19.2 Random Glucose 124 mg/dl Calcium Level 9.6 mg/dl Magnesium Level 2.6 mg/dl Assessment and Plan 87 y/o F who was admitted on 10/15 for PNA and UTI, is having acute deconditioning Sepsis from Aspiration Pneumonia and E. coli UTI: Possible acute respiratory failure associated with increased respiratory rate I cannot breathing, unresponsive, skin is cold to mottle. Pressure Ulcers: H/O DVT/PE: Xarelto 20 mg HS Severe Dementia: HTN/HLD: Stopped per family Dementia: continue home meds Code Status: DO NOT RESUSCITATE Patient is obvious deconditioning and pending dying, call to patient's power of broadcasting equipment mechanic, who is Karrie, update her patient's conditions I told her patient possibly spending time because of acute respiratory failure with history of recent pneumonia sepsis UTI, discussed about options of care plan, based on the discussion on yesterday with family members, patient's living will, POA requests comfort measures only, I agreed, discussed with nursing staff, will transfer her to 4th medicine comfort measures only, morphine, Ativan, scopolamine is ordered, all other medicines for a therapeutic purpose were stop Continued [facility] stay due to: multiple IV medications needed Discharge planning: other (Patient is active dying)
[2017-10-17] MEDS ORDERED: LORAZEPAM 2 MG/ML 1 ML VIAL IV PRN (12:30)
[2017-10-17] MEDS ORDERED: SCOPOLAMINE 1.5 MG TDSY TD SCH (12:30)
[2017-10-17] MEDS ORDERED: ALBUT/IPRATROP 3MG/0.5MG NEB 3 ML VIAL INH SCH (15:00)
--- NOTE | 2017-10-17 15:21 | Death Summary ---
Summary of Admission Date Oct 15, 2017 at 14:27 Date & Time of Oct 17, 2017. 1310 Cause of Sepsis from Aspiration Pneumonia and E. coli UTI: Secondary Diagnoses Aspiration Pneumonia and E. coli UTI: Hospital Course 87 y/o F who was admitted on 10/15 for PNA and UTI, is having acute deconditioning Sepsis from Aspiration Pneumonia and E. coli UTI: Possible acute respiratory failure associated with increased respiratory rate I cannot breathing, unresponsive, skin is cold to mottle. Pressure Ulcers: H/O DVT/PE: Xarelto 20 mg HS Severe Dementia: HTN/HLD: Stopped per family Dementia: continue home meds Code Status: DO NOT RESUSCITATE Patient is obvious deconditioning and pending dying, call to patient's power of county attorney, who is Karrie, update her patient's conditions I told her patient possibly spending time because of acute respiratory failure with history of recent pneumonia sepsis UTI, discussed about options of care plan, based on the discussion on yesterday with family members, patient's living will, POA requests comfort measures only, I agreed, discussed with nursing staff, will transfer her to 4th medicine comfort measures only, morphine, Ativan, scopolamine is ordered, all other medicines for a therapeutic purpose were stop Patient was pronounced as on 1309 Discussed with family members including power of county attorney Copy To Wendie Parker M.D.
[2017-10-17] MEDS ORDERED: CHECK SCOPOLAMINE PATCH PLACEMENT SCH (16:00)
== END 2017-10-17 15:34 | disposition expired | DRG 871 ==
LOC: EDBD 10:57 → C.EDB 11:00 → C.MS2W 14:27 → EDBEDREQSVC 14:30 → EDBEDREQ 14:32 → ENRESERV 15:09 → CANBEDREQ 10-17 13:16
PROVIDERS: ADMIT Family Medicine; ATTEND Hospitalist
DX: A41.51 Sepsis due to Escherichia coli [E. coli] (principal); J69.0 Pneumonitis due to inhalation of food and vomit; N39.0 Urinary tract infection, site not specified; J96.00 Acute respiratory failure, unspecified whether with hypoxia or hypercapnia; Z66 Do not resuscitate; N17.9 Acute kidney failure, unspecified; R65.20 Severe sepsis without septic shock; F03.90 Unspecified dementia, unspecified severity, without behavioral disturbance, psychotic disturbance, mood disturbance, and anxiety; Z51.5 Encounter for palliative care; L89.90 Pressure ulcer of unspecified site, unspecified stage; Z86.718 Personal history of other venous thrombosis and embolism; N40.0 Benign prostatic hyperplasia without lower urinary tract symptoms; Z74.01 Bed confinement status; E78.5 Hyperlipidemia, unspecified; I10 Essential (primary) hypertension